=== PATIENT | female | born 1965 | race African-American/Black ===

== ENCOUNTER 2019-02-04 08:12 | Emergency (ER) | payer OTHER, SELFPAY ==
[2019-02-04 08:13] VITALS: BP 137/70; PULSE 67; RESP 18; TEMP 37.1; O2SAT 100; BMI 43.0
--- NOTE | 2019-02-04 08:19 | NURSING ---
NO OLD EKGS
--- NOTE | 2019-02-04 08:45 | EKG12_ITS ---
Test Reason : CP Blood Pressure : / mmHG Vent. Rate : 072 BPM Atrial Rate : 072 BPM P-R Int : 168 ms QRS Dur : 080 ms QT Int : 398 ms P-R-T Axes : 062 -02 027 degrees QTc Int : 435 ms Normal sinus rhythm Normal ECG Confirmed by TSEFANO PINEDO, DIGNA ([id number]), features editor EMELY DE ANDA ([id number]) on 02/07/2019 1:07:12 PM Referred By: KELLI Confirmed By:DIGNA AGARWAL MD
--- NOTE | 2019-02-04 09:04 | RAD_ITS ---
STUDY: X-RAY CHEST REASON FOR EXAM: Female, 53 years old. Chest pain. TECHNIQUE: PA and lateral views of the chest. COMPARISON: None. FINDINGS: The lungs are clear and expanded. There is no demonstrated pleural abnormality. Normal size heart. Normal mediastinum and marcie. Normal visualized pulmonary arteries. Normal visualized aortic arch and descending thoracic aorta. Normal visualized thoracic spine. Normal visualized ribs, clavicles, and shoulders. There is no demonstrated abnormality of the visualized soft tissue structures of the upper abdomen. RAD/Chest PA and Lateral IMPRESSION: No evidence of acute cardiopulmonary process. Electronically Signed: Reyes Bustamante DO at 9:18 EDT , Service support ,
[2019-02-04 09:25] LABS: Anion Gap 6 (5-15); BUN 8 mg/dL (7-18); BUN/Creat Ratio 9.7 RATIO (10-20); Calcium,Total 8.5 mg/dL (8.5-10.1); Chloride 107 mmol/L (98-107); Creatinine, Serum 0.83 mg/dL (0.55-1.02); EST Glomerular Filtration Rate 77 mL/min (>60); Est Glom Filt Rate - Afr Amer 93 mL/min (>60); Estimated Creatinine Clearance 75.07 ml/min; Glucose 88 mg/dL (74-106); Potassium 4.1 mmol/L (3.5-5.1); Sodium Level 141 mmol/L (136-145)
--- NOTE | 2019-02-04 10:15 | ED.VIS.GEN ---
History of Present Illness Chief Complaint: Chest Pain Detail of Chief Complaint: Intermittent bilateral arm discomfort, history of fibromyalgia Informant: Patient Onset: Days - 6 days Context: Sudden Onset Timing: Intermittent, Waxes and wanes, - - No association to exertion, change in position or food. Quality: Intermittent chest discomfort, which patient encouraged to fiber myalgia Location: Central chest Current Severity: Mild Maximum Severity: Moderate Worsened by: Palpation Relieved by: Nothing Associated Symptoms: Intermittent bilateral arm discomfort not associated with chest discomfort Narrative: Patient is a middle-aged woman with history of fibromyalgia who presents with central and predominantly left chest pain located above the left breast. Pain is worse with fibromyalgia. She attributes this to her fibromyalgia. There is no associated dyspnea, nausea or diaphoresis. The arm discomfort is not associated with the chest discomfort. She states because she is a middle-aged woman she wanted to assess for cardiac cause. She denies leg pain, swelling discoloration. She denies pleuritic chest pain, dyspnea on exertion or hemoptysis. Prior similar symptoms: No Recent Illness/Hospitalization: No - Past Medical History (1) Fibromyalgia affecting multiple sites Status: Acute Past Medical History - Allergies and Home Meds Allergies/Adverse Reactions: Allergies No Known Allergies Allergy (Verified 02/11/15 17:26) Primary Care Physician: Phil Finnegan DO [Primary Care Provider] - Prior records reviewed: Yes Surgical History: noncontributory Lives: With Family - She lives with her son Smoking Status: Never smoker Alcohol: None Drugs: None Review of Systems General: Denies: Chills, Fever, Malaise, Subjective, Sweats, Weight loss Eyes: Denies: Visual changes - bilaterally, Blurred Vision - bilaterally, Diplopia ENT: Denies: Rhinorrhea, Sore throat Cardiovascular: Reports: Chest pain. Denies: Palpitations, Heart racing Respiratory: Denies: Dyspnea, Cough, Dyspnea on exertion Gastrointestinal: Denies: Abdominal pain, Nausea, Vomiting, Diarrhea, Melena, Hematochezia Genitourinary: Denies: Dysuria, Hematuria, Frequency Musculoskeletal: Reports: Myalgias, Arthralgias. Denies: Back pain, Swelling, Extremity Pain Skin: Denies: Rash, Wounds Neurological: Denies: Headache, Weakness, Numbness Psych: Reports: Depression Allergy: Denies: Uticaria, Swelling of the mouth Physical Exam Vital Signs/Narrative: Vital Signs Temp Pulse Resp BP Pulse Ox 02/04/19 08:13 98.8 F 67 18 137/70 H 100 Inital Vital Signs reviewed: Yes - BMI 43.1 General: Well nourished, Well developed, Obese, No Acute Distress Head: Normocephalic, Atraumatic Eyes: Perrl, EOMI. Negative for: Pale conjunctiva, Scleral icterus ENT: Moist mucous membranes, No rhinorrhea Neck: Supple, Nontender Cardiovascular: Regular rate, Regular rhythm, No murmurs Respiratory: No distress, CTA bilaterally, Chest tenderness - To the left of the sternum Abdomen: Soft, Nontender, Nondistended, Normal bowel sounds Back: Nontender, Normal Inspection Extremities: Nontender, No edema, - - There is no asymmetry, swelling, discoloration, leg vein distention, palpable cords or tenderness along the distribution of the deep venous system. Skin: Normal color, No rash Neurological: Alert, Oriented x3, Cranial nerves II-XII grossly intact, Normal Strength, Normal Sensation Psychological: Normal affect, Normal Mood Diagnostic/Tx/Re-eval Chest X-Ray - ED: 2 View, Read by ED Physician, Normal, Heart, Mediastinum, Bony Structures, No Acute Disease Impressions Chest X-Ray 02/04/19 09:04 IMPRESSION: No evidence of acute cardiopulmonary process. Electronically Signed: Reyes Bustamante DO at 9:18 EDT , Service support , 02/04/19 09:04 Chest PA and Lateral [RAD] Stat Laboratory Results 02/04/19 08:40 Sodium 141 Potassium 4.1 Chloride 107 Carbon Dioxide 28.0 Anion Gap 6 BUN 8 Creatinine 0.83 Estim Creat Clear Calc 75.07 Est GFR (MDRD) Af Amer 93 Est GFR (MDRD) Non-Af 77 BUN/Creatinine Ratio 9.7 L Glucose 88 Calcium 8.5 Troponin I < 0.015 - Medical Decision Making Suspect patient's symptoms are secondary to her fibromyalgia. Because she is a middle-aged woman will obtain EKG, chest x-ray and troponin. Differential includes noncardiac chest pain, cardiac chest pain, GI/pulmonary etiology versus fibromyalgia. With days of discomfort and the chest pain only being fleeting when present suspect this is secondary to her fibromyalgia. We will discharged home with appropriate home-going instructions and reassurance. ED Disposition - Plan for ED Patient: Disposition: Home or Assisted Living Diagnosis: Fibromyalgia affecting multiple sites, Non-cardiac chest pain Instructions: ED Chest Pain NonCardiac, ED Fibrositis Referrals: Phil Finnegan DO [Primary Care Provider] - 1 Week if not improving
== END 2019-02-04 16:53 | disposition home or self-care (01) ==
PROVIDERS: Emergency Provider Emergency Medicine; Family Provider Student in an Organized Health Care Education/Training Program; PCP Student in an Organized Health Care Education/Training Program
DX: R07.89 Other chest pain (principal); M79.7 Fibromyalgia; E66.9 Obesity, unspecified; Z68.41 Body mass index [BMI] 40.0-44.9, adult
CPT/HCPCS: 71046; 80048; 84484; 93005; 99284

== ENCOUNTER 2020-08-14 12:15 | Emergency (ER) | payer OTHER, SELFPAY ==
[2020-08-14 12:17] VITALS: BP 153/91; PULSE 60; RESP 16; TEMP 36.6; O2SAT 98; BMI 47.9
--- NOTE | 2020-08-14 12:32 | CT_ITS ---
STUDY: CT BRAIN WITHOUT CONTRAST REASON FOR EXAM: Female, 55 years old. HEADACHE, PAIN X 2 WEEKS RADIATION DOSAGE (If Supplied By Facility): CTDIvol = ( 44.99 ) mGy, DLP = ( 745.49 ) mGycm TECHNIQUE: Transaxial CT imaging of the brain was performed without administration of intravenous contrast material. Individualized dose optimization techniques were used for this CT. COMPARISON: No relevant priors. FINDINGS: Normal soft tissue structures. Normal calvarium. Normal size ventricles and extra-axial spaces for the patient''s age. Normal white matter tracts of the cerebral hemispheres. Normal basal ganglia and thalami. Normal brainstem. Normal cerebellum. There is no intracranial hemorrhage. There are no findings of an acute ischemic infarction. Normal visualized paranasal sinuses. CT/Brain/Head without Contrast IMPRESSION: Normal unenhanced CT scan of the brain. Electronically Signed: Eugenio Hall MD at 13:35 EDT Tel , Service support ,
[2020-08-14] MEDS: Ketorolac 15 MG/ML Vial IV (13:03)
[2020-08-14] MEDS: DiphenhydrAMINE 50 MG/ML Syringe IV (13:03)
[2020-08-14] MEDS: Metoclopramide 10 MG/2 ML Vial IV (13:03)
--- NOTE | 2020-08-14 13:04 | ED.VISSUMM ---
- ER Visit Summary Date of Service: 08/14/20 Chief Complaint: Headache History of Present Illness: The patient is a [address] Finnegan in the [place] [facility]. She reports that she has a headache that began 2 weeks ago. She describes it as a sharp pain that is diffuse over her head. Is 10 out of 10 in severity. It is worsened by the smell of food or perfume. She has taken a triptan without relief. She denies fever. She is had nausea without vomiting. She does report she has blurred vision photophobia. Patient has any recent injury to her head. She denies any ear pain. She denies sore throat. Patient reports that she went to the [place] urgent care 2 weeks ago and was found to have shingles on her right buttock. She has been on Nano acyclovir for 1 week and a Medrol Dosepak. She reports that the rash is essentially resolved. She denies any pain in this area. Physical Examination: Vitals: Stable. Afebrile. General: Well-nourished and well-developed. Head: Normocephalic atraumatic. HEENT: TMs are within normal's bilaterally. Neck: Supple, no lymphadenopathy. No JVD. Nontender. Cardiovascular: Regular rate and rhythm. No murmurs. Respiratory: No respiratory distress. Clear to auscultation bilaterally. Abdominal: Soft, nontender, nondistended, normal bowel sounds. No guarding, rebound, or peritoneal signs. Back: Nontender. Extremities: Nontender, no edema. Skin: Normal color, no rash. No vesicular lesions. Neurologic: Alert and oriented ?3. Cranial nerves II through XII are intact. Normal strength and sensation. Psych: Normal affect. Test Results: CBC is normal. Chem-7 shows potassium 3.3 and creatinine 1.05. Clinical Impression(s) from Imaging Studies Brain CT 08/14/20 12:32 IMPRESSION: Normal unenhanced CT scan of the brain. Electronically Signed: Eugenio Hall MD at 13:35 EDT Tel , Service support , Emergency Department Course and Treatment: Patient had an IV placed. She is given a liter normal saline. She was given Benadryl, Toradol, and Reglan IV. She reports that her headache is resolved. Treatment Plan: Patient be discharged with Reglan. Instructed to follow-up her primary care physician 1 to 2 days if not improving. Return to the emergency department for any worsening symptoms. Disposition: To home in improved and stable condition. Impression: 1. Migraine headache. This note was generated with [employer] dictation software. It may contain incorrect words, spelling, and punctuation that were not noted in review of the chart prior to signing ED Disposition - Plan for ED Patient: Instructions: ED Headache Unspecified Prescriptions: Metoclopramide [Reglan] 10 mg PO 4X/DAY PRN #20 tablet PRN Reason: Headache [facility]errals[facility] [Primary Care Provider] - 1-2 Days if not improving
[2020-08-14] MEDS: 0.9% Normal Saline 1,000 ML 999 ML IV (13:06)
[2020-08-14 13:21] LABS: Absolute Lymphocyte Count 2.52 X10^3/uL (0.83-4.51); Absolute Neutrophil Count 5.3 X10^3/uL (2.0-7.7); Basophil# 0.03 X10^3/uL; Basophil% 0.3 % (0-1); Eosinophils% 1.2 % (0-5); Hematocrit 39.8 % (37-47); Hemoglobin 12.6 g/dL (12.0-15.0); Lymphocyte # 2.52 X10^3/ul (4.0); Mean Corp Hgb Conc 31.7 g/dL (32-36); Mean Corpuscular Hgb 26.8 pg (27.0-32.0); Mean Corpuscular Volume 84.5 fL (81-99); Mean Platelet Vol. 10.1 fl (6.2-12.0); Monocyte# 0.73 X10^3/uL; Monocyte% 8.4 % (0-10); NRBC Flagged by Analyzer 0 % (0-5); Neutrophil # 5.27 X10^3/uL (2.7-7.7); Neutrophil % 60.8 % (47-70); Platelet Count 351 K/mm3 (150-450); RBC Distribution Width CV 14.8 % (11.6-14.6); RBC Distribution Width SD 44.9 fl (35.1-43.9); Red Blood Count 4.71 M/mm3 (4.2-5.4); White Blood Count 8.7 K/mm3 (4.4-11.0)
[2020-08-14 13:28] LABS: Anion Gap 5 (5-15); BUN 9 mg/dL (7-18); BUN/Creat Ratio 8.6 RATIO (10-20); Calcium,Total 8.9 mg/dL (8.5-10.1); Chloride 106 mmol/L (98-107); Creatinine, Serum 1.05 mg/dL (0.55-1.02); EST Glomerular Filtration Rate 58 mL/min (>60); Est Glom Filt Rate - Afr Amer 71 mL/min (>60); Estimated Creatinine Clearance 58.01 ml/min; Glucose 94 mg/dL (74-106); Potassium 3.3 mmol/L (3.5-5.1); Sodium Level 141 mmol/L (136-145)
[2020-08-14 14:18] VITALS: BP 129/77; PULSE 54; RESP 16; O2SAT 98
== END 2020-08-14 14:20 | disposition home or self-care (01) ==
LOC: ED 12:42
PROVIDERS: Emergency Provider Emergency Medicine
DX: G43.909 Migraine, unspecified, not intractable, without status migrainosus (principal)
CPT/HCPCS: 70450; 80048; 85025; 96374; 96375; 99282; J7030; A4216

== ENCOUNTER 2021-02-27 11:32 | Outpatient (RCR) | payer OTHER, SELFPAY | END 2021-04-15 23:59 | LOC: IMMUN 11:32 | PROVIDERS: Referring Provider Family Medicine; Visit Provider Family Medicine | DX: Z23 Encounter for immunization (principal) | CPT/HCPCS: 0001A; 0002A; 91300 ==

== ENCOUNTER → 2021-04-17 15:48 | Outpatient (CLI) | payer OTHER, SELFPAY ==
--- NOTE | 2021-04-17 15:51 | BI_ITS ---
MAMMOGRAPHY - BILATERAL SCREENING REASON FOR EXAM: Female, 55 years old. Routine annual screening examination. PERTINENT HISTORY: Sister with breast cancer. Grandmother with breast cancer. Remote right excisional breast biopsy. TECHNIQUE: Digital bilateral breast kristopher (3D mammographic acquisition) in the CC and MLO projections. 2-D mediolateral oblique (MLO) and craniocaudad (CC) views of both breasts were obtained. CAD: Full Field Digital Mammography with Computer Added Detection was performed. COMPARISON: Comparison is made with prior outside examination dated 03/17/2019. FINDINGS: Breast Composition: There are scattered areas of fibroglandular density. There are no dominant masses or suspicious calcifications. Stable small benign-appearing bilateral axillary lymph nodes. No other significant abnormalities are identified. There has been no significant change since the prior study. BI/SCRN MAMM (CAD)W/KRISTOPHER BILAT IMPRESSION: Stable bilateral screening mammogram. Yearly follow-up mammogram recommended. (A) ASSESSMENT CATEGORY: BIRADS Category 2: Benign. A letter regarding these results will be sent to the patient by the facility within 30 days. Approximately 10% of breast cancers are not detected by mammography. A normal mammogram should not delay biopsy of a clinically suspicious abnormality. [id number] Electronically Signed: Hernando Enriquez MD at 8:19 EDT , Service support ,
== END ==
PROVIDERS: Referring Provider Nurse Practitioner Family; Visit Provider Nurse Practitioner Family
DX: Z12.31 Encounter for screening mammogram for malignant neoplasm of breast (principal)
CPT/HCPCS: 77063; 77067

== ENCOUNTER 2021-10-21 08:22 | Emergency (ER) | payer OTHER, SELFPAY ==
[2021-10-21 08:23] VITALS: BP 141/100; PULSE 74; RESP 16; TEMP 36.1; O2SAT 98; BMI 44.4
--- NOTE | 2021-10-21 08:36 | EDS_ITS ---
HPI History of Present Illness Chief Complaint: General Illness Informant: patient Onset/Context/Timing Onset: Month(s) Context: Gradual Onset Timing: Intermittent Current Severity: Mild Maximum Severity: Mild Narrative Narrative: 56-year-old female history of fibromyalgia, migraine headaches and menopausal. Patient states she she uses Celexa. Said the last several months she had intermittent dizzy spells. Nausea with decreased appetite. Diffuse aches and pains. Some right lower lateral back pain. And episodes of diaphoresis. Intermittent diarrhea. No fever. No dysuria. No abdominal pain. Prior similar symptoms: No Recent Illness/Hospitalization: No PFSH PFSH Medical History Arthritis Fibromyalgia Migraine Home Medications methylprednisolone See Taper PO DAILY 08/14/20 [History Last Taken Unknown] metoclopramide HCl 10 mg PO 4X/DAY PRN #20 tab 08/14/20 [Rx Last Taken Unknown] rizatriptan 5 mg PO X1 PRN 08/14/20 [History Last Taken Unknown] valacyclovir 1,000 mg PO TID 08/14/20 [History Last Taken Unknown] citalopram 30 mg PO QHS 10/21/21 [History Last Taken Unknown] Allergy/AdvReac Type Severity Reaction Status Date / Time citric acid AdvReac Rash Verified 10/21/21 08:25 Surgical History History of appendectomy Social History Smoking Status: Never smoker ROS ROS ED ROS Narrative Right lower back pain. Diarrhea. Review of Systems ROS Unobtainable: Denies due to encephalopathy Constitutional Constitutional ED: Denies fever(s) Eyes Eyes: Denies change in vision ENT ENT ED: Denies ear pain or sore throat Cardiovascular Cardiovascular: Denies chest pain Respiratory/Chest Respiratory/Chest: Denies cough, dyspnea or sputum Gastrointestinal Gastrointestinal: Reports diarrhea; Denies abdominal pain, nausea or vomiting Genitourinary Genitourinary ED: Denies dysuria or hematuria Musculoskeletal Musculoskeletal: Denies myalgias Integumentary Denies rash Neurologic Neurologic: Denies headache(s) Psychiatric Psychiatric: Denies depression Endocrine Endocrinology: Denies polyuria Allergic/Immunologic Allergic/Immunologic ED: Denies urticaria EXAM Physical Exam Narrative Exam Narrative: Middle-aged female no acute distress vital signs stable afebrile. Pulse ox 90% on room air no signs hypoxia. HEENT exam unremarkable. Moist with memories. Neck nontender no lymphadenopathy. Lungs clear to auscultation bilaterally. Heart regular rate and rhythm rate about 75 no murmur. Abdomen soft nontender normal bowel sounds no peritoneal signs. Morbidly obese. Moving all 4 extremities. Neurovascular intact. Normal motor strength. Nontender no edema. Back right lower paralumbar soft tissue tenderness. Spine nontender. Neurological exam awake and alert. Normal motor strength. Const Vital Signs: 10/21/21 08:23 10/21/21 08:31 Temperature 97.0 F L Temperature Source Temporal Pulse Rate 74 Respiratory Rate 16 Respiratory Effort Normal Non-Labored Blood Pressure 141/100 H Blood Pressure Mean 113 Pulse Ox 98 Oxygen Delivery Method Room Air Positive well nourished, well developed and obese; Negative for cachectic, contractures or unkempt General Appearance ED: well developed and NAD; Negative for unkempt, cachectic, contractures, cyanotic, diaphoretic or pallor Nutritional Appearance: obese; Negative for cachectic HEENT Reports moist mucous membranes Negative for trauma or tenderness Eyes PERRL and EOMs intact bilaterally Neck no lymphadenopathy, supple and no JVD General: Negative for tenderness Chest Wall inspection of chest normal and palpation of chest normal Resp normal respiratory effort and clear to auscultation bilaterally Effort and Inspection: Negative for pain with movement Auscultation: Negative for rales, rhonchi or wheezes Cardio regular rate, regular rhythm, S1 normal heart sound, S2 normal heart sound and no murmurs GI normal to inspection, nondistended, normoactive bowel sounds, non-tender, non- distended and no masses Inspection: Negative for abdominal distention Auscultation: normoactive bowel sounds Palpation: soft; Negative for tender, guarding or rebound tenderness present Back/Spine no CVA tenderness General Back: Negative for CVA tenderness Cervical Spine: Negative for cervical spine tenderness Thoracic Spine / Upper Back: paraspinal muscle tenderness; Negative for thoracic spinal tenderness Lumbar Spine / Lower Back: Negative for lumbar spinal tenderness Extremity normal to inspection General Extremety ED: Negative for edema or tenderness General Extremity: Negative for edema Neuro oriented x3 and CN's II-XII intact bilaterally Sensorium / Orientation: alert; Negative for orientation impaired, lethargic or stuporous Motor Exam: strength 5/5 throughout Psych mental status grossly normal Appearance: Negative for unkempt Mood & Affect: Negative for depressed or tearful Skin no rashes or lesions noted and no wounds General Skin Exam: Negative for jaundice or pallor MDM MDM MDM Narrative Medical decision making narrative: Middle-aged female with diffuse nonspecific symptoms and a normal exam. Screening labs and urinalysis are being obtained. Repeat exam at 9:20 AM patient is doing well. Exam is unchanged and unremarkable. She and I went over all of her test results. She will follow up as an outpatient with the [facility]. Lab Data Attestation: I reviewed the patient's lab results. Lab results narrative: CBC unremarkable white count 7. Hemoglobin 13.1. Platelets 315. Electrolytes show a gap of 5 normal BUN and creatinine. Normal liver enzymes. Urinalysis shows 0-5 reds. 0-5 whites. 2+ bacteria but there is 5-10 epithelial cells and no nitrites. UA is negative also. Labs: Laboratory Results - last 24 hr 10/21/21 10/21/21 10/21/21 08:40 08:40 08:50 WBC 7.7 RBC 4.91 Hgb 13.1 Hct 40.4 MCV 82.3 MCH 26.7 L MCHC 32.4 RDW Std Deviation 44.5 H RDW Coeff of Dwayne 14.6 Plt Count 315 MPV 9.9 Immature Gran % (Auto) 0.300 Neut % (Auto) 58.9 Lymph % (Auto) 31.9 [place] % (Auto) 6.9 Eos % (Auto) 1.7 Baso % (Auto) 0.3 Absolute Neuts (auto) 4.5 Absolute Lymphs (auto) 2.44 Nucleated RBC % 0 Sodium 140 Potassium 4.0 Chloride 111 H Carbon Dioxide 24.0 Anion Gap 5 BUN 10 Creatinine 0.93 Estim Creat Clear Calc 64.74 Est GFR (MDRD) Af Amer 81 Est GFR (MDRD) Non-Af 67 BUN/Creatinine Ratio 10.8 Glucose 97 Calcium 8.7 Total Bilirubin 0.40 AST 16 ALT 24 Alkaline Phosphatase 74 Total Protein 7.8 Albumin 3.2 Globulin 4.6 H Albumin/Globulin Ratio 0.7 L Urine Color Yellow Urine Clarity Clear Urine pH 8.0 Ur Specific [place] 1.010 Urine Protein 15 H Urine Glucose (UA) Normal Urine Ketones Negative Urine Occult Blood Negative Urine Nitrite Negative Urine Bilirubin Negative Urine Urobilinogen 1 H Ur Leukocyte Esterase 25 H Urine RBC 0-5 SEEN Urine WBC 0-5 SEEN Ur Squamous Epith Cells 5-10 SEEN Urine Bacteria 2+ Urine Mucus RARE Discharge Plan Triage Chief Complaint: General Illness ED Provider: Jonathan Martinez Dx/Rx/DC Orders Instructions: ED Flank Pain, Uncertain Cause Prescriptions: No Action valacyclovir 1,000 MG tablet 1,000 mg PO TID RF: 0 methylprednisolone 4 mg tablets,dose pack See Taper tab PO DAILY RF: 0 rizatriptan 5 MG tablet,disintegrating 5 mg PO X1 PRN (Reason: Headache) RF: 0 metoclopramide HCl 10 MG tablet 10 mg PO 4X/DAY PRN (Reason: Headache) Qty: 20 RF: 0 citalopram 20 mg tablet 30 mg PO QHS RF: 0 [facility] [facility]errals[place] [facility] [Primary Care Provider] - 1 Week if not improving Activity Restrictions/Additional Instructions: Your labs today including blood counts, electrolytes, liver enzymes, blood sugar, kidney function and urinalysis were all normal. Follow-up with the [facility]. Disposition Disposition: Home, Self Care
[2021-10-21 08:51] LABS: Absolute Lymphocyte Count 2.44 X10^3/uL (0.83-4.51); Absolute Neutrophil Count 4.5 X10^3/uL (2.0-7.7); Basophil# 0.02 X10^3/uL; Basophil% 0.3 % (0-1); Eosinophil# 0.13 X10^3/uL; Eosinophils% 1.7 % (0-5); Hematocrit 40.4 % (37-47); Hemoglobin 13.1 g/dL (12.0-15.0); Lymphocyte # 2.44 X10^3/ul (0.83-4.51); Lymphocyte % 31.9 % (19-41); Mean Corp Hgb Conc 32.4 g/dL (32-36); Mean Corpuscular Hgb 26.7 pg (27.0-32.0); Mean Corpuscular Volume 82.3 fL (81-99); Mean Platelet Vol. 9.9 fl (6.2-12.0); Monocyte# 0.53 X10^3/uL; Monocyte% 6.9 % (0-10); NRBC Flagged by Analyzer 0 % (0-5); Neutrophil # 4.52 X10^3/uL (2.7-7.7); Neutrophil % 58.9 % (47-70); Platelet Count 315 K/mm3 (150-450); RBC Distribution Width CV 14.6 % (11.6-14.6); RBC Distribution Width SD 44.5 fl (35.1-43.9); Red Blood Count 4.91 M/mm3 (4.2-5.4); White Blood Count 7.7 K/mm3 (4.4-11.0)
[2021-10-21 08:58] LABS: Color, Urine Yellow (Yellow); Glucose, Dipstick Normal (Normal); Ketone-Dipstick Negative (Negative); Leukocyte Esterase-Dipstick 25 /ul (Negative); Nitrite-Dipstick Negative (Negative); Occult Blood-Urine Negative /ul (Negative); Protein-Dipstick 15 mg/dl (Negative); Urine Bilirubin Dipstick Negative (Negative); Urine Clarity Clear (Clear); Urine Urobilinogen 1 mg/dl (Normal)
[2021-10-21 09:06] LABS: ALB/GLOB Ratio 0.7 RATIO (0.9-2.4); AST(SGOT) 16 U/L (15-37); Alanine Aminotransfer ALT/SGPT 24 U/L (13-56); Albumin, Serum 3.2 g/dL (3.2-5.0); Alkaline Phosphatase 74 U/L (45-117); Anion Gap 5 (5-15); BUN 10 mg/dL (7-18); BUN/Creat Ratio 10.8 RATIO (10-20); Calcium,Total 8.7 mg/dL (8.5-10.1); Chloride 111 mmol/L (98-107); Creatinine, Serum 0.93 mg/dL (0.55-1.02); EST Glomerular Filtration Rate 67 mL/min (>60); Est Glom Filt Rate - Afr Amer 81 mL/min (>60); Estimated Creatinine Clearance 64.74 ml/min; Globulin 4.6 g/dL (2.2-4.2); Glucose 97 mg/dL (74-106); Protein, Total 7.8 g/dL (6.4-8.2); Sodium Level 140 mmol/L (136-145)
[2021-10-21 09:10] LABS: Bacteria 2+ /hpf (None Seen); Mucous, Urine RARE /hpf (<or=2+); Red Blood Cells-Urine 0-5 SEEN /hpf (0-5); Squamous Epithelial Cells - UA 5-10 SEEN /hpf (5-10); White Blood Cells 0-5 SEEN /hpf (0-5)
== END 2021-10-21 09:26 | disposition home or self-care (01) ==
PROVIDERS: Emergency Provider Emergency Medicine
DX: R10.9 Unspecified abdominal pain (principal); M54.9 Dorsalgia, unspecified; R11.0 Nausea; R19.7 Diarrhea, unspecified; R42 Dizziness and giddiness; E66.9 Obesity, unspecified; Z79.899 Other long term (current) drug therapy
CPT/HCPCS: 80053; 81001; 85025; 99283; A4216

== ENCOUNTER 2022-03-29 07:13 | Emergency (ER) | payer OTHER, SELFPAY ==
[2022-03-29 07:16] VITALS: BP 135/89; PULSE 70; RESP 17; TEMP 36.3; O2SAT 98; BMI 45.3
[2022-03-29 07:40] VITALS: O2SAT 98
--- NOTE | 2022-03-29 07:40 | EX.ED.DYSGE1 ---
HPI History of Present Illness Chief Complaint: Cough Informant: patient Onset/Context/Timing Onset: Month(s) (1) Context: Gradual Onset Timing: Continuous Quality: Wheezing Location: Chest Worsened by: Hot and cold fluids Relieved by: Tessalon, room temperature fluids Narrative Narrative: Patient presents with cough and fatigue that has been constant for the past month. Patient states it came on gradually. Patient states she has been having some wheezing in her chest. Patient states she has been taking Tessalon which helps briefly. Patient states that room temperature fluids also seem to help with the cough. Patient states her cough seems to get worse if she drinks hot or cold fluids. Patient states she feels like she is wheezing in her chest.. Patient states that she has been seen at the [facility] twice for this. Patient states she was diagnosed with a viral illness. [facility] Medical History Arthritis Fibromyalgia Migraine Home Medications methylprednisolone See Taper PO DAILY 08/14/20 [History Last Taken Unknown] metoclopramide HCl 10 mg PO 4X/DAY PRN #20 tab 08/14/20 [Rx Last Taken Unknown] rizatriptan 5 mg PO X1 PRN 08/14/20 [History Last Taken Unknown] valacyclovir 1,000 mg PO TID 08/14/20 [History Last Taken Unknown] citalopram 30 mg PO QHS 10/21/21 [History Last Taken Unknown] Allergy/AdvReac Type Severity Reaction Status Date / Time sumatriptan [From Imitrex] Allergy Other Verified 03/29/22 07:15 citric acid AdvReac Rash Verified 10/21/21 08:25 metformin AdvReac Diarrhea Verified 03/29/22 07:15 Surgical History History of appendectomy Social History Smoking Status: Never smoker ROS ROS ED Constitutional Constitutional ED: Reports chills and subjective; Denies fever(s) Eyes Eyes: Denies blurry vision or change in vision ENT ENT ED: Reports ear pain left and sore throat; Denies rhinorrhea Cardiovascular Cardiovascular: Reports chest pain; Denies palpitations Respiratory/Chest Respiratory/Chest: Reports cough; Denies dyspnea Gastrointestinal Gastrointestinal: Reports nausea and vomiting Genitourinary Genitourinary ED: Denies dysuria or hematuria Musculoskeletal Musculoskeletal: Reports back pain; Denies neck pain Integumentary Denies abscess or rash Neurologic Neurologic: Reports headache(s); Denies weakness Allergic/Immunologic Allergic/Immunologic ED: Denies mouth swelling or urticaria EXAM Physical Exam Const Vital Signs: 03/29/22 07:16 03/29/22 07:40 03/29/22 08:22 Temperature 97.3 F L 97.3 F L Temperature Source Temporal Temporal Pulse Rate 70 70 Respiratory Rate 17 18 Respiratory Effort Normal Non-Labored Respiratory Depth Normal Respiratory Pattern Normal Blood Pressure 135/89 H 121/71 H Blood Pressure Mean 104 87 Pulse Ox 98 99 Oxygen Delivery Method Room Air Room Air Room Air 03/29/22 08:34 Temperature Temperature Source Pulse Rate 71 Respiratory Rate 18 Respiratory Effort Respiratory Depth Respiratory Pattern Normal Blood Pressure Blood Pressure Mean Pulse Ox Oxygen Delivery Method Positive well nourished, well developed and obese General Appearance ED: well developed and NAD Nutritional Appearance: obese HEENT Reports TM's clear and moist mucous membranes Tympanic Membrane ED: Yes TM's clear Eyes PERRL and EOMs intact bilaterally Neck supple and no JVD Resp normal respiratory effort Auscultation: diminished lung sounds bilateral Cardio regular rate, regular rhythm and no murmurs GI non-tender Palpation: soft Extremity normal to inspection General Extremety ED: Negative for edema or tenderness General Extremity: Negative for edema Neuro oriented x3, CN's II-XII intact bilaterally and no sensory deficits noted Sensorium / Orientation: alert Motor Exam: strength 5/5 throughout Psych mental status grossly normal Skin no rashes or lesions noted MDM MDM MDM Narrative Medical decision making narrative: Patient was given a DuoNeb aerosol here. CBC was within normal limits. Comprehensive metabolic profile was essentially within normal limits. Portable 1 view chest x-ray was obtained. On my interpretation, lung aguilar are clear. There is normal cardiac silhouette. Bony thorax is normal. There is no acute process noted. Radiologist also interpreted the x-ray and agrees. COVID-19 rapid antigen was obtained and was negative. Influenza A and influenza B swabs were obtained and were negative. Patient was feeling better on reevaluation. Patient was advised that this is most likely a viral upper respiratory infection. Patient was instructed to follow-up with her primary care physician in 5 to 7 days for reevaluation. Patient understood and was agreeable with the plan. All questions were answered. Lab Data Labs: Laboratory Results - last 24 hr 03/29/22 03/29/22 08:20 08:20 WBC 5.7 RBC 4.69 Hgb 12.4 Hct 39.0 MCV 83.2 MCH 26.4 L MCHC 31.8 L RDW Std Deviation 43.8 RDW Coeff of Dwayne 14.6 Plt Count 284 MPV 9.3 Immature Gran % (Auto) 0.300 Neut % (Auto) 52.3 Lymph % (Auto) 32.6 Kingsbury % (Auto) 13.6 H Eos % (Auto) 1.0 Baso % (Auto) 0.2 Absolute Neuts (auto) 3.0 Absolute Lymphs (auto) 1.87 Nucleated RBC % 0 Sodium 137 Potassium 3.1 L Chloride 103 Carbon Dioxide 28.0 Anion Gap 6 BUN 10 Creatinine 1.11 H Estim Creat Clear Calc 54.24 Est GFR (MDRD) Af Amer 66 Est GFR (MDRD) Non-Af 54 L BUN/Creatinine Ratio 9.0 L Glucose 88 Calcium 8.8 Total Bilirubin 0.30 AST 26 ALT 26 Alkaline Phosphatase 65 Total Protein 7.7 Albumin 3.4 Globulin 4.3 H Albumin/Globulin Ratio 0.8 L Radiography Diagnostic Testing: Clinical Impression(s) from Imaging Studies Chest X-Ray 03/29/22 07:46 IMPRESSION: Normal x-ray examination of the chest. Electronically Signed: Eugenio Hall MD at 8:39 EDT , Discharge Plan Triage Chief Complaint: Cough ED Provider: Ryan Parsons Dx/Rx/DC Orders Clinical Impression: Viral upper respiratory tract infection Instructions: ED URI, Viral, No Abx (Adult) Prescriptions: No Action valacyclovir 1,000 MG tablet 1,000 mg PO TID RF: 0 methylprednisolone 4 mg tablets,dose pack See Taper tab PO DAILY RF: 0 rizatriptan 5 MG tablet,disintegrating 5 mg PO X1 PRN (Reason: Headache) RF: 0 metoclopramide HCl 10 MG tablet 10 mg PO 4X/DAY PRN (Reason: Headache) Qty: 20 RF: 0 citalopram 20 mg tablet 30 mg PO QHS RF: 0 [facility] - 3-5 Days Disposition Disposition: Home, Self Care Discharge Date/Time: 03/29/22 10:25
--- NOTE | 2022-03-29 07:46 | RAD_ITS ---
STUDY: X-RAY CHEST REASON FOR EXAM: Female, 56 years old. Cough TECHNIQUE: Single AP portable view of the chest. COMPARISON: 02/04/2019 FINDINGS: The lungs are clear and expanded. There is no demonstrated pleural abnormality. Normal size heart. Normal mediastinum and marcie. Normal visualized pulmonary arteries. Normal visualized aortic arch and descending thoracic aorta. Normal visualized thoracic spine. Normal visualized ribs, clavicles, and shoulders. There is no demonstrated abnormality of the visualized soft tissue structures of the upper abdomen. RAD/Chest 1 View (Portable) IMPRESSION: Normal x-ray examination of the chest. Electronically Signed: Eugenio Hall MD at 8:39 EDT ,
[2022-03-29 08:22] VITALS: BP 121/71; PULSE 70; RESP 18; TEMP 36.3; O2SAT 99
[2022-03-29 08:26] LABS: Absolute Lymphocyte Count 1.87 X10^3/uL (0.83-4.51); Basophil# 0.01 X10^3/uL; Basophil% 0.2 % (0-1); Eosinophil# 0.06 X10^3/uL; Hemoglobin 12.4 g/dL (12.0-15.0); Lymphocyte # 1.87 X10^3/ul (0.83-4.51); Lymphocyte % 32.6 % (19-41); Mean Corp Hgb Conc 31.8 g/dL (32-36); Mean Corpuscular Hgb 26.4 pg (27.0-32.0); Mean Corpuscular Volume 83.2 fL (81-99); Mean Platelet Vol. 9.3 fl (6.2-12.0); Monocyte# 0.78 X10^3/uL; Monocyte% 13.6 % (0-10); NRBC Flagged by Analyzer 0 % (0-5); Neutrophil # 2.99 X10^3/uL (2.7-7.7); Neutrophil % 52.3 % (47-70); Platelet Count 284 K/mm3 (150-450); RBC Distribution Width CV 14.6 % (11.6-14.6); RBC Distribution Width SD 43.8 fl (35.1-43.9); Red Blood Count 4.69 M/mm3 (4.2-5.4); White Blood Count 5.7 K/mm3 (4.4-11.0)
[2022-03-29] MEDS: Ipratropium/Albuterol Sulfate 3 ML AMPUL.NEB INHALATION (08:31)
[2022-03-29 08:34] VITALS: PULSE 71; RESP 18
[2022-03-29 08:42] LABS: BUN 10 mg/dL (7-18); Creatinine, Serum 1.11 mg/dL (0.55-1.02); Estimated Creatinine Clearance 54.24 ml/min; Glucose 88 mg/dL (74-106)
[2022-03-29 08:43] LABS: ALB/GLOB Ratio 0.8 RATIO (0.9-2.4); AST(SGOT) 26 U/L (15-37); Alanine Aminotransfer ALT/SGPT 26 U/L (13-56); Albumin, Serum 3.4 g/dL (3.2-5.0); Alkaline Phosphatase 65 U/L (45-117); Anion Gap 6 (5-15); Calcium,Total 8.8 mg/dL (8.5-10.1); Chloride 103 mmol/L (98-107); EST Glomerular Filtration Rate 54 mL/min (>60); Est Glom Filt Rate - Afr Amer 66 mL/min (>60); Globulin 4.3 g/dL (2.2-4.2); Potassium 3.1 mmol/L (3.5-5.1); Protein, Total 7.7 g/dL (6.4-8.2); Sodium Level 137 mmol/L (136-145)
== END 2022-03-29 10:25 | disposition home or self-care (01) ==
PROVIDERS: Emergency Provider Emergency Medicine; Visit Provider Emergency Medicine
DX: J06.9 Acute upper respiratory infection, unspecified (principal); M79.7 Fibromyalgia; E66.9 Obesity, unspecified
CPT/HCPCS: 99282; 71045; 80053; 85025; 87428; 94640; 99283; A4216

== ENCOUNTER → 2022-04-20 | Outpatient (CLI) | payer OTHER, SELFPAY ==
--- NOTE | 2022-04-20 07:08 | BI_ITS ---
MAMMOGRAPHY - BILATERAL SCREENING REASON FOR EXAM: Female, 56 years old. Routine annual screening examination. PERTINENT HISTORY: Sister with breast cancer. Grandmother with breast cancer. Remote right excisional breast biopsy. TECHNIQUE: Digital bilateral breast kristopher (3D mammographic acquisition) in the CC and MLO projections. 2-D mediolateral oblique (MLO) and craniocaudad (CC) views of both breasts were obtained. CAD: Full Field Digital Mammography with Computer Added Detection was performed. COMPARISON: Comparison is made with prior study dated 04/17/2021. FINDINGS: Breast Composition: There are scattered areas of fibroglandular density. There are no dominant masses or suspicious calcifications. Stable small benign appearing bilateral axillary nodes. No other significant abnormalities are identified. There has been no significant change since the prior study. BI/SCRN MAMM (CAD)W/KRISTOPHER BILAT IMPRESSION: Stable bilateral screening mammogram. Yearly follow-up mammogram recommended. (A) ASSESSMENT CATEGORY: BIRADS Category 2: Benign. A letter regarding these results will be sent to the patient by the facility within 30 days. Approximately 10% of breast cancers are not detected by mammography. A normal mammogram should not delay biopsy of a clinically suspicious abnormality. [id number] Electronically Signed: Hernando Enriquez MD at 8:21 EDT ,
== END | disposition home or self-care (01) ==
LOC: OPBI 07:06
PROVIDERS: Visit Provider Nurse Practitioner Family
DX: Z12.31 Encounter for screening mammogram for malignant neoplasm of breast (principal)
CPT/HCPCS: 77063; 77067

== ENCOUNTER 2022-07-30 14:30 | Outpatient (RCR) | payer OTHER, SELFPAY ==
--- NOTE | 2022-05-15 07:46 | HP.PTEVAL_ITS ---
Patient's Visit Information SHEJUANA SASHA CORONA is a 56 year old F referred to Physical Therapy by BRANDO MORLEY with a diagnosis of LBP. Date of Evaluation: 05/15/22 Physical Therapist: Ryan Deal, CAILINT, OCS, CSCS - Visit Plan Frequency: 2x /Week Duration: 2 Months Plan: 2x/week for 6-8 weeks. we will start with aquatic based therapy to focus on: HS and quad/psoas stretching. LB ROM. core/postural UE and LE strength adn progress to I in pool. Pt wishes at some point to progress to and based gym program and will consider that after 4 weeks in pool. - Subjective I have pain. It is worsening over time. Has a torn meniscus r knee and upper and lower back pain and OA in whole body. Also has FM. Has chronic migraines. Most pain is posterior R hip and LB. Works in [employer] office up stairs and tries to walk and that makes pain worse. has to walk far from parking lot and knees, hip and back do not appreciate that. No falls. Some numbness and tingling in fingers and toes much of time. Sits too long or stand too long makes everything ache. Standing to do dishes takes toll on back and knees. Walks for exercise but it hurts. Putting hair in pony tail hurts shoulders. Sits at desk all day. sleep is not great, gets about 4-5 a night. Wants 8-10. Pain in LB ranges 0-10 and has been to ER. some times rarely does not hurt. Going out with sisters to [employer] is interrupted due to pain. - Pain LBP Pain Intensity (Out of 10): 0 Pain Intensity Range: 0, 10 - Objective Walks slow but steady with good balance to PT eval room. Transitions using UE I chair and bed. Steps require rail and are I, prefers descending using R only and tunring sideways mildly. Cervical aROM WFL and without pain. Lumbar AROM l imited in ext with some pain centrally, min limited SB with pain, flexion is tight and functional. Max tightness in HS at -45 90/90 test today, psoas and quads also tight causing back pain lying supine improved with bending knees. UE and LE AROM WFL outside of tightness. sensation UE and LE WNL to gross light touch. reflexes 1/3 patella and achilles and bi and tri. Strength hips 4-, knees 4 and ankles 4+, no pain. UE strength shoulder rotations 4- and flexion and abd 4- with some pain in shoulders.. Bi , tri, wrist testing is 5/5 and no pain. Tender to palpation throughout cervical area and into LB paraspinals. - slump. -SLR - Balance/Special Test Scores Functional Gait Assessment Score: 29 % Disability: 3.3400 Oswestry Neck Score: 21 - Goals Goal 1:: Sleep without waking 6 hours at night regularly Goal Time Frame: 6-8 Weeks Goal 2:: I approp gym or and aquatic ex to minimize symptoms Goal Time Frame: 6-8 Weeks Goal 3:: patient feel pain in whole body is 75% improved to 2/10 at worst Goal Time Frame: 6-8 Weeks Goal 4:: Up and down steps without increased pain at work Goal Time Frame: 6-8 Weeks Goal 5:: Sit to watch moving or at casino with sisters without increased pain Goal Time Frame: 6-8 Weeks - Rehabilitation Potential Physical Therapy Diagnosis: LBP, FM widespread chronic pain limiting funciton. Rehabilitation Potential: Fair - Anticipated Interventions Patient/Client Instruction: Educate patient on: Condition, Plan of Care For the Purpose of:: To decrease pain, To improve muscle performance and motor function, To increase tolerance to activity/condition/position, To improve gait and locomotor functions, To improve self management Therapeutic Exercise to Include: Strength training, Postural training, Flexibilty training, In an aquatic setting, Passive ROM, Active ROM For the Purpose of:: To decrease pain, To improve muscle performance and motor function, To increase tolerance to activity/condition/position, To improve ability of physical actions for home/community/work/leisure, To improve gait and locomotor functions, To improve self management Thank you for the opportunity to evaluate your patient. For Medicare and Medicare HMO plans, please review the plan of care and approve it. It will need to be FAXED BACK to us at [phone] for Medicare purposes. For Medicare only, by signing this I certify the plan of care. Please let me know if there are questions or concerns regarding this plan of care. Physician Signature: Date:
--- NOTE | 2022-07-16 15:23 | HP.PTREVAL ---
BRANDO MORLEY, It has been my pleasure to treat SHEJUANA SASHA CORONA over the last 14 visits for LBP. Please see the progress note below for an update on the physical therapy plan of care! Subjective: Got a great workout in the pool. I sleep much better. Very tired after sessions. 4/10 pain currently much better than it used to be. Pain still limits her but she is doing alot more. Event over weekend made her work through her pain. Will go get x rays . Will continue on her own in the pool. has elliptical, rower adn recumbent at home. Wants to learn gym exercises. Objective/Function: Good LB ROM without pain increase today, moving well. Steps reciprocal with one rail without assist or pain increase. Plan Plan: 2x/week for 2 weeks land to teach gym ex including LE postural and core strength including row, recumbent, elliptical and progress to I with list. Balance/Gait/Functional tests - Balance/Special Test Scores Functional Gait Assessment Score: 29 % Disability: 3.3400 Oswestry Neck Score: 18 Goals Goal 1:: Sleep without waking 6 hours at night regularly Goal Time Frame: 6-8 Weeks Goal Progress: Goal Met Goal 2:: I approp gym or and aquatic ex to minimize symptoms Goal Time Frame: 6-8 Weeks Goal Progress: Goal Met Goal 3:: patient feel pain in whole body is 75% improved to 2/10 at worst Goal Time Frame: 6-8 Weeks Goal Progress: 60% Goal 4:: Up and down steps without increased pain at work Goal Time Frame: 6-8 Weeks Goal Progress: Goal Met Goal 5:: Sit to watch moving or at casino with sisters without increased pain Goal Time Frame: 6-8 Weeks Goal Progress: Goal Met Goal 6:: I approp gym exercise to limit future pain. Goal Time Frame: 2 Weeks Anticipated Interventions Patient/Client Instruction: Educate patient on: Condition, Plan of Care For the Purpose of:: To decrease pain, To improve muscle performance and motor function, To increase tolerance to activity/condition/position, To improve gait and locomotor functions, To improve self management Therapeutic Exercise to Include: Strength training, Postural training, Flexibilty training, In an aquatic setting, Passive ROM, Active ROM For the Purpose of:: To decrease pain, To improve muscle performance and motor function, To increase tolerance to activity/condition/position, To improve ability of physical actions for home/community/work/leisure, To improve gait and locomotor functions, To improve self management Please do not hesitate to contact me at [phone] by phone or if you have questions or concerns regarding this new plan of care! Sincerely, Ryan Deal, DPT, OCS, CSCS
--- NOTE | 2022-08-03 15:31 | HP.PTDCSUM_ITS ---
It has been my pleasure to treat SHEJUANA SASHA CORONA referred by BRANDO MORLEY, with the diagnosis of LBP for a total of 18 visit(s). Discharge Date: 08/03/22 Please see the following information for a summary of their discharge status. Subjective: Working in the gym and stretching at home might have made her flare up. Shoulders are sore. Not getting in the pool regularly as she has not joined yet. Back pain is not bad but rest of body flared up with strength in gym. Sleeping on couch due to neck and shoulders. Hip is still hurting at times. LB is much better. R hip 4/10 daily. Worse with bending or sitting too long. To doctor but has not gotten x rays yet. LBP Pain Intensity (Out of 10): 0 RLE Pain Intensity (Out of 10): 5 % Improvement: 50 Objective/Function: ROM LB WFL and without increased pain today. Full UE and LE AROM without increased pain. just feel crummy overall in upper halpf more so than lower half. Goal 1:: Sleep without waking 6 hours at night regularly Goal Progress: Goal Met, setback Goal 2:: I approp gym or and aquatic ex to minimize symptoms Goal Progress: aquatic only tolerated Goal 3:: patient feel pain in whole body is 75% improved to 2/10 at worst Goal Progress: 50% Goal 4:: Up and down steps without increased pain at work Goal Progress: setback Goal 5:: Sit to watch moving or at casino with sisters without increased pain Goal Progress: Goal Met LB and hip Goal 6:: I approp gym exercise to limit future pain. Goal Progress: not tolerated. Plan: d/c, pt to cotninResponsa in pool x one month and then f/u with phyusician if wishes to return to gym exercises which she did not tolerate at this time. Discharge Comments: Pt to cotninue in water I 3x/weeka dn then [facility] if should return for [facility] based PT. If there are questions or concerns regarding this patient's physical therapy, please feel free to call me at [phone]. Thank you for the referral of this patient. Sincerely, Ryan Deal, DPT, OCS, CSCS Balance/Gait/Functional tests - Balance/Special Test Scores Functional Gait Assessment Score: 29 % Disability: 3.3400 Oswestry Low Back Score: 19 Oswestry Neck Score: 18
== END 2022-07-30 19:00 | disposition home or self-care (01) ==
LOC: PT 14:30
DX: M54.59 Other low back pain (principal)
CPT/HCPCS: 97110; 97113; 97162; 97530

== ENCOUNTER 2022-08-07 09:38 | Day surgery (SDC) | payer OTHER, SELFPAY ==
[2022-08-07] VITALS (7 sets, daily range): BP systolic 101–125; BP diastolic 61–76; PULSE 58–66; RESP 16; TEMP 36.1–36.9; O2SAT 96–100; BMI 47.5
--- NOTE | 2022-08-07 10:15 | HP.PCM_ITS ---
History and Physical Date of Admission: 08/07/22 Visit Reasons:?COLONOSCOPY Allergies sumatriptan [From Imitrex] Allergy (Verified 03/29/22 07:15) Othercitric acid Adverse Reaction (Verified 10/21/21 08:25) Rashmetformin Adverse Reaction (Verified 03/29/22 07:15) Diarrhea PFSH Medical History? Arthritis Fibromyalgia Migraine Surgical History? History of appendectomy Social History? Smoking Status:? Never smoker HPI HPI HPI: SHERENATO CORONA, is a 56 F who presents to the office today for surgical consultation regarding a colonoscopy.? The patient is referred by the [facility] and written compromise surgical consult and recommendations will return to them.? This will be the patient's for screening colonoscopy.? She has no personal history of colon polyps.? She has had previous appendectomy.? As of March 11, 2022 white blood cell count was 7.8 with a hemoglobin 12.6 Francis crit 39.3 and a platelet count of 276,000.? BUN is 10 and creatinine 1 with a glucose of 8 5. Exam Const General: cooperative, comfortable and no acute distress Nutritional Appearance: obese morbidly obese Orientation: alert and awake [facility] Head: normal to inspection Eyes General: appearance normal, both eyes and all related structures Neck Neck: normal visual inspection Resp Effort & Inspection: normal respiratory effort Auscultation: clear to auscultation bilaterally Cardio Rate: regular rate Rhythm: regular rhythm GI Palpation: soft and no hepatosplenomegaly Other: I am not able to detect any internal air organs secondary to body habitus Musc Cervical Spine: normal cervical lordosis Skin General: no rashes or lesions noted Neuro General: patient alert, patient awake and patient oriented x3 Assessment and Plan Assessment and Plan (1) Screening for intestinal cancer: ?Status:?Acute ?Plan: I recommended the patient a screening colonoscopy with possible biopsy or polypectomy as indicated.? She is aware of the technique, benefit, risk, alternatives.? She has had an opportunity to ask and have questions answered.? We will proceed as noted. Copy: [facility] Matt Quijano M.D., [place]kie. I have re-examined the patient. There are no clinical changes since date of exam. Matt Quijano M.D., TalhaS.
[2022-08-07] MEDS: Lactated Ringers 1,000 ML 15 ML IV (10:20)
--- NOTE | 2022-08-07 10:45 | COLBX_PTH ---
PATIENT: ELIZABETH CORONA LOC: EN U#:[id number] AGE/SX: 57/F ROOM: RE08/07/[address]: Dr. Matt Quijano MD : [id number] BED: DIS: 08/07/2022 SPEC #: [id number] RECD: 08/07/22 12:52 STATUS: MARIO REMukund #: [id number] ALEJANDRO: 08/07/22 10:[address]: Matt Quijano DEPT: SURGICAL PATHOLOGY RECD BY: Neva Beltran ENTERED: 08/07/22 13:24 SP TYPE: COLON BX OTHR DR: [facility] Tissues: Descending colon Procedures: Surgery Specimen Level IV HEADER OPERATION: Colonoscopy (MAC), biopsy PRE-OP DIAGNOSIS: Screening TISSUE SUBMITTED: Descending polyp biopsy MICROSCOPIC DIAGNOSIS Descending colon polyp, biopsy: Mucosal lipoma. AM:mine 08/10/2022 MICROSCOPIC DESCRIPTION Slides are reviewed. GROSS DESCRIPTION Received in fixative is one container labeled with the patient's name and designated descending polyp biopsy. The specimen consists of two irregular fragments of light arceo soft tissue that in aggregate measure 0.6 x 0.3 x 0.1 cm. The specimen is totally submitted in one cassette. / SJ:mine 08/07/2022 TC:5 CPT: 66661
--- NOTE | 2022-08-07 11:01 | OP.CCLET_ITS ---
08/07/2022 [facility] Re : Colonoscopy procedure for [facility] This procedure was performed on Sunday, August 07, 2022. My impressions and recommendations are as follows: Impressions : - Hemorrhoids found on perianal exam. - One 5 mm polyp in the distal descending colon, removed with a cold biopsy forceps. Resected and retrieved. - The examination was otherwise normal. Recommendations : - Discharge patient to home. - Resume previous diet. - Continue present medications. - Repeat colonoscopy in 5 years for surveillance based on pathology results. - Telephone my office for pathology results in 1 week. My findings are described in the full procedure note, which is enclosed. If I can be of further assistance, please feel free to contact me at Doctor phone number(s): Work: . Sincerely, Matt Quijano MD 08/07/2022 11:00:47 AM This report has been signed electronically.
--- NOTE | 2022-08-07 11:01 | OP.COLON_ITS ---
Patient Name: Gurpreet Colón Procedure Date: 08/07/2022 10:25 AM Date of : 1965 Age: 57 Procedure: Colonoscopy Indications: Screening for colorectal malignant neoplasm Providers: Matt Quijano MD Medicines: See the Anesthesia note for documentation of the administered medications Patient Profile: Last Colonoscopy: none. The patient's first colonoscopy is today. Complications: No immediate complications. Procedure: Pre-Anesthesia Assessment: - Prior to the procedure, a History and Physical was performed, and patient medications and allergies were reviewed. The patient's tolerance of previous anesthesia was also reviewed. The risks and benefits of the procedure and the sedation options and risks were discussed with the patient. All questions were answered, and informed consent was obtained. Prior Anticoagulants: The patient has taken no previous anticoagulant or antiplatelet agents. ASA Grade Assessment: III - A patient with severe systemic disease. After reviewing the risks and benefits, the patient was deemed in satisfactory condition to undergo the procedure. After I obtained informed consent, the scope was passed under direct vision. Throughout the procedure, the patient's blood pressure, pulse, and oxygen saturations were monitored continuously. The adult colonoscope was introduced through the anus and advanced to the cecum, identified by appendiceal orifice and ileocecal valve. The colonoscopy was somewhat difficult due to the patient's body habitus. The patient tolerated the procedure well. The quality of the bowel preparation was good. The ileocecal valve and the appendiceal orifice were photographed. Scope In: 10:39:29 AM Scope Withdrawal Time 0 hours 6 minutes 24 seconds Scope Out: 10:56:20 AM Total Procedure Duration Time 0 hours 16 minutes 51 seconds Findings: Hemorrhoids were found on perianal exam. A 5 mm polyp was found in the distal descending colon. The polyp was sessile. The polyp was removed with a cold biopsy forceps. Resection and retrieval were complete. The exam was otherwise without abnormality. Impression: - Hemorrhoids found on perianal exam. - One 5 mm polyp in the distal descending colon, removed with a cold biopsy forceps. Resected and retrieved. - The examination was otherwise normal. Recommendation: - Discharge patient to home. - Resume previous diet. - Continue present medications. - Repeat colonoscopy in 5 years for surveillance based on pathology results. - Telephone my office for pathology results in 1 week. Procedure Code(s): --- Professional --- 87330, Colonoscopy, flexible; with biopsy, single or multiple Diagnosis Code(s): --- Professional --- Z12.11, Encounter for screening for malignant neoplasm of colon K64.9, Unspecified hemorrhoids D12.4, Benign neoplasm of descending colon CPT copyright 2017 [employer]. All rights reserved. The codes documented in this report are preliminary and upon marine driller review may be revised to meet current compliance requirements. Matt Quijano MD 08/07/2022 11:00:47 AM This report has been signed electronically. Number of Addenda: 0 Note Initiated On: 08/07/2022 10:25 AM
== END 2022-08-07 12:46 | disposition home or self-care (01) ==
LOC: EN 09:41 → AC 09:43
PROVIDERS: Visit Provider Surgery
PROC: 0DJD8ZZ Inspection of Lower Intestinal Tract, Via Natural or Artificial Opening Endoscopic (ICD-10-PCS; CPT 45378; principal; 2022-08-07 10:40)
DX: Z12.11 Encounter for screening for malignant neoplasm of colon (principal); E66.01 Morbid (severe) obesity due to excess calories; Z68.42 Body mass index [BMI] 45.0-49.9, adult; D17.5 Benign lipomatous neoplasm of intra-abdominal organs; K64.9 Unspecified hemorrhoids; F41.9 Anxiety disorder, unspecified; F32.A Depression, unspecified; Z79.899 Other long term (current) drug therapy
CPT/HCPCS: 45380; 88305; J7120

== ENCOUNTER 2022-12-18 09:58 | Emergency (ER) | payer OTHER, SELFPAY ==
[2022-12-18 09:59] VITALS: BP 158/91; PULSE 68; RESP 20; TEMP 36.6; O2SAT 99; BMI 48.1
--- NOTE | 2022-12-18 10:10 | EKG12_ITS ---
Test Reason : CP Blood Pressure : / mmHG Vent. Rate : 069 BPM Atrial Rate : 069 BPM P-R Int : 168 ms QRS Dur : 076 ms QT Int : 404 ms P-R-T Axes : 042 002 024 degrees QTc Int : 432 ms Normal sinus rhythm Normal ECG Confirmed by STEFANO PINEDO, DIGNA ([id number]), slot editor EMELY DE ANDA ([id number]) on 12/21/2022 12:38:28 PM Referred By: ABIDA Confirmed By:DIGNA AGARWAL MD
--- NOTE | 2022-12-18 10:11 | EDS_ITS ---
HPI History of Present Illness Chief Complaint: General Illness Detail of Chief Complaint: Left-sided chest pain and left upper extremity pain Onset/Context/Timing Onset: Days (On set December 13) Context: Gradual Onset Timing: Continuous Quality: Ache Location: Left chest and left upper extremity Current Severity: Mild Maximum Severity: Moderate Worsened by: Nothing specific Relieved by: Mapping Associated Symptoms Associated Symptoms: Reports dyspnea on exertion past couple of weeks Narrative Narrative: Patient is a morbidly obese female with history of anxiety, fibromyalgia, IBS and migraine headaches who presents with anterior left chest pain described as a ache that radiates to the left shoulder and upper extremity. The chest discomfort is not associated with nausea, vomiting, dyspnea or diaphoresis. The pain has been constant since onset. There are no exacerbating, alleviating or precipitating factors. Patient denies black or maroon-colored stool. Patient denies sour taste in the back of her throat. Patient denies history of biliary disease or gallstones. She is uncertain if there is a family history of cholelithiasis. She presented because her father of coronary artery disease at the age of 67. She does not know when he had his first cardiac event. She denies history of VTE. She denies leg pain, swelling or discoloration. She has no risk factors for VTE. There is no history of trauma. She states she does have a rash noted on her back. The rash is not painful. Patient believes this may be due to anxiety or her fibromyalgia. Prior similar symptoms: No Recent Illness/Hospitalization: No [facility] Medical History (Updated 12/18/22 @ 10:[address] Jj Ruiz MD) Anxiety Arthritis Asthma Back pain Depression Fibromyalgia Fibromyalgia Gastric reflux History of pain when walking History of ulceration Injury of head and neck Migraine Non-smoker Post-menopausal Restless legs Shortness of breath on exertion Syncope Wears glasses Home Medications rizatriptan 5 mg disintegrating tablet 5 mg PO X1 PRN Headache 08/14/20 [History Last Taken Unknown] citalopram 20 mg tablet 40 mg PO QHS 10/21/21 [History Last Taken Unknown] buspirone 5 mg tablet 10 mg PO DAILY 08/05/22 [History Last Taken Unknown] dicyclomine 20 mg tablet 20 mg PO PRN PRN STOMACH PAIN 08/05/22 [History Last Taken Unknown] lorazepam 0.5 mg tablet 0.5 mg PO DAILY PRN Anxiety 08/05/22 [History Last Taken Unknown] propranolol 10 mg tablet 120 mg PO DAILY MIGRAINES 08/05/22 [History Last Taken 08/07/22] Allergy/AdvReac Type Severity Reaction Status Date / Time sumatriptan [From Imitrex] Allergy Other Verified 12/18/22 10:02 citric acid AdvReac Rash Verified 12/18/22 10:02 metformin AdvReac Diarrhea Verified 12/18/22 10:02 Surgical History History of appendectomy Hx of breast lump removal Social History household members: children Smoking Status: Never smoker substance use type: does not use ROS ROS ED Constitutional Constitutional ED: Denies chills, fever(s), subjective, sweats or weight loss Eyes Eyes: Denies blurry vision, change in vision or diplopia ENT ENT ED: Denies ear pain, rhinorrhea or sore throat Cardiovascular Cardiovascular: Reports chest pain; Denies orthopnea, palpitations, paroxysmal nocturnal dyspnea or racing heartbeat Respiratory/Chest Respiratory/Chest: Reports dyspnea on exertion; Denies cough, dyspnea, orthopnea, paroxysmal nocturnal dyspnea or sputum Gastrointestinal Gastrointestinal: Denies abdominal pain, melena, nausea or vomiting Genitourinary Genitourinary ED: Denies dysuria, hematuria or other Musculoskeletal Musculoskeletal: Denies arthralgias, back pain, myalgias or neck pain Integumentary Denies Abrasions or rash Neurologic Neurologic: Denies headache(s), paresthesias or weakness Hematologic/Lymphatic Hematologic/Lymphatic: Reports systems reviewed and no addt'l complaints, except as documented EXAM Physical Exam Const Vital Signs: 12/18/22 09:59 Temperature 97.9 F Temperature Source Temporal Pulse Rate 68 Respiratory Rate 20 H Blood Pressure 158/91 H Blood Pressure Mean 113 Pulse Ox 99 Oxygen Delivery Method Room Air Positive well nourished, well developed and obese General Appearance ED: well developed and NAD; Negative for cyanotic, diaphoretic or pallor Nutritional Appearance: obese HEENT Reports moist mucous membranes HEENT Narrative: Head is atraumatic normocephalic. Ears normal. Nares patent. Mucosa moist. Teeth normal. Eyes PERRL and EOMs intact bilaterally General Eye ED: Negative for pale conjunctiva or scleral icterus Neck no lymphadenopathy, supple and no JVD Neck Narrative: There is no carotid bruit noted on the right or left side. Chest Wall inspection of chest normal and palpation of chest normal Resp normal respiratory effort and clear to auscultation bilaterally Cardio regular rate, regular rhythm, S1 normal heart sound, S2 normal heart sound and no murmurs GI normal to inspection, nondistended, normoactive bowel sounds, non-tender, non- distended and no masses; Negative for hepatosplenomegaly Back/Spine no CVA tenderness Back/Spine Narrative: Inspection of the back is normal. There is no rash noted. There is no hyperesthesia. Cervical Spine: Negative for cervical spine tenderness Thoracic Spine / Upper Back: Negative for thoracic spinal tenderness Extremity normal to inspection Extremity Narrative: There is no asymmetry, swelling, discoloration, leg vein distention, palpable cords or tenderness along the distribution of the deep venous system. Neuro oriented x3, CN's II-XII intact bilaterally and no sensory deficits noted Sensorium / Orientation: alert Psych mental status grossly normal Skin no rashes or lesions noted, no wounds and skin turgor normal General Skin Exam: elasticity normal; Negative for jaundice or pallor MDM MDM MDM Narrative Medical decision making narrative: Differential diagnosis would include noncardiac chest pain i.e. fibromyalgia, musculoskeletal, GERD as well as cardiac. History is not consistent with PE. Suspect this most likely represents patient's fibromyalgia and or in combination with anxiety. Since there is family history coronary disease will obtain EKG and troponin. Chest x-ray was not obtained since patient is not hypoxic and there are no abnormal auscultatory findings on examination. Review of prior records indicates patient did have a colonoscopy for cancer screening. There was a 5 mm polyp noted distal colon. Biopsy results were negative for carcinoma. Patient was made aware of her results. Questions were answered. Lab Data Attestation: I reviewed the patient's lab results. Lab results narrative: With a troponin of 5 and 5 days of pain based on algorithm negative predictive value for cardiac is 100%. Therefore, we will discharge to home and attributed her chest pain to a combination of musculoskeletal/fibromyalgia and anxiety. Labs: Laboratory Results - last 24 hr 12/18/22 10:19 Troponin I High Sens 5 EKG Initial EKG: Attestation: I personally reviewed and interpreted this EKG as follows: Interpretation: Sinus Rhythm (Normal sinus rhythm rate of 69. EKG is normal. DC interval is 168 ms. QRS duration 76 ms. QT duration 404 ms. [place] is normal. This was compared old and there is no change.) Prior: Unchanged Discharge Plan Triage Chief Complaint: General Illness ED Provider: Jj Ruiz Dx/Rx/DC Orders Clinical Impression: Left-sided chest pain, Fibromyalgia affecting multiple sites, Hx of anxiety disorder Prescriptions: No Action rizatriptan 5 MG tablet,disintegrating 5 mg PO X1 MDD 6 PRN (Reason: Headache) citalopram 20 mg tablet 40 mg PO QHS buspirone 5 mg tablet 10 mg PO DAILY propranolol 10 mg tablet 120 mg PO DAILY lorazepam 0.5 mg Tablet 0.5 mg PO DAILY PRN (Reason: Anxiety) dicyclomine 20 mg tablet 20 mg PO PRN PRN (Reason: STOMACH PAIN) Label Comments: take 1 tablet by mouth four times a day for 5 days [facility] [Primary [facility] Provider] - As Needed Disposition Disposition: Home, Self Care Discharge Date/Time: 12/18/22 11:20
[2022-12-18 10:41] LABS: Troponin-I HS 5 pg/mL (3.0-54.0)
--- NOTE | 2022-12-18 11:20 | NURSING ---
[facility] # [id number]
== END 2022-12-18 11:20 | disposition home or self-care (01) ==
PROVIDERS: Emergency Provider Emergency Medicine; Visit Provider Emergency Medicine
DX: R07.9 Chest pain, unspecified (principal); E66.01 Morbid (severe) obesity due to excess calories; G43.909 Migraine, unspecified, not intractable, without status migrainosus; F41.9 Anxiety disorder, unspecified; F32.A Depression, unspecified; Z79.899 Other long term (current) drug therapy
CPT/HCPCS: 84484; 93005; 99284; A4216

== ENCOUNTER 2023-03-25 08:09 | Emergency (ER) | payer OTHER, SELFPAY ==
[2023-03-25 08:10] VITALS: BP 157/98; PULSE 65; RESP 18; TEMP 35.6; O2SAT 99; BMI 49.4
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
[2023-03-25 09:44] LABS: Absolute Lymphocyte Count 2.07 X10^3/uL (0.83-4.51); Absolute Neutrophil Count 4.2 X10^3/uL (2.0-7.7); Basophil# 0.03 X10^3/uL; Basophil% 0.4 % (0-1); Eosinophil# 0.19 X10^3/uL; Eosinophils% 2.7 % (0-5); Hematocrit 43.4 % (37-47); Lymphocyte # 2.07 X10^3/ul (0.83-4.51); Lymphocyte % 29.6 % (19-41); Mean Corp Hgb Conc 32.3 g/dL (32-36); Mean Corpuscular Hgb 27.1 pg (27.0-32.0); Mean Corpuscular Volume 83.9 fL (81-99); Mean Platelet Vol. 9.8 fl (6.2-12.0); Monocyte# 0.47 X10^3/uL; Monocyte% 6.7 % (0-10); NRBC Flagged by Analyzer 0 % (0-5); Neutrophil # 4.22 X10^3/uL (2.7-7.7); Neutrophil % 60.5 % (47-70); Platelet Count 293 K/mm3 (150-450); RBC Distribution Width CV 13.8 % (11.6-14.6); RBC Distribution Width SD 42.8 fl (35.1-43.9); Red Blood Count 5.17 M/mm3 (4.2-5.4)
[2023-03-25 09:53] LABS: Amphetamine Urine VISTA NEGATIVE (<1000 ng/mL); Barbiturate Urine VISTA NEGATIVE (< 200 ng/mL); Benzodiazepine Urine VISTA NEGATIVE (< 200 ng/mL); Cocaine Urine VISTA NEGATIVE (< 300 ng/mL); Ecstacy Urine VISTA POSITIVE (< 500 ng/mL); Methadone Urine VISTA NEGATIVE (< 300 ng/mL); PCP Urine VISTA NEGATIVE (< 25 ng/mL); THC Urine VISTA NEGATIVE (< 50 ng/mL); Vista UDS pH Range 6
[2023-03-25 09:57] LABS: Anion Gap 6 (5-15); BUN 12 mg/dL (7-18); BUN/Creat Ratio 10.6 RATIO (10-20); Calcium,Total 9.6 mg/dL (8.5-10.1); Chloride 107 mmol/L (98-107); Creatinine, Serum 1.13 mg/dL (0.55-1.02); EST Glomerular Filtration Rate 53 mL/min (>60); Est Glom Filt Rate - Afr Amer 64 mL/min (>60); Estimated Creatinine Clearance 52.66 ml/min; Glucose 116 mg/dL (74-106); Potassium 4.3 mmol/L (3.5-5.1); Sodium Level 137 mmol/L (136-145)
[2023-03-25 10:05] LABS: Alcohol, Blood (Medical)-Serum < 3.0 mg/dL
[2023-03-25 14:41] VITALS: BP 128/81; PULSE 59; RESP 16; O2SAT 98
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
--- NOTE | 2023-03-25 16:28 | CM.ED ---
Social Work SW faxed patient information to [facility] regarding psych placement referral. SW called twice and left two voicemails regarding referral. Syl Judd PAYMENT MANAGER, SKI PATROLLER
--- NOTE | 2023-03-25 16:54 | CM.ED ---
Social Work SW spoke with Arm[facility] at the [facility] regarding placement. [facility] requested a negative covid, a pink slip made out to them and confirmation that patient does not use a cpap. Covid faxed and patient does not use a cpap. [facility] accepting physician is Dr. Fisher with the psych ER and report is to be called to [phone] ext. [phone]. [facility] is arranging transport through the [facility]. If transport is not available he requests hospital to schedule transport. [facility] contact - [phone] ext. [phone], to notify of transport time. Syl Judd SUEDE CLEANER, AUTOMOBILE MECHANIC MOTOR
[2023-03-25 16:58] VITALS: RESP 16
[2023-03-25 18:31] VITALS: BP 124/74; PULSE 60; RESP 16; O2SAT 98
== END 2023-03-25 21:07 ==
PROVIDERS: Emergency Provider Emergency Medicine; Visit Provider Emergency Medicine
DX: F32.A Depression, unspecified (principal); F41.9 Anxiety disorder, unspecified
CPT/HCPCS: 36415; 80048; 80307; 82077; 85025; 87811; 99282

== ENCOUNTER 2023-05-21 08:20 | Emergency (ER) | payer OTHER, SELFPAY ==
[2023-05-21 08:22] VITALS: BP 160/84; PULSE 65; RESP 18; TEMP 36.4; O2SAT 98; BMI 49.7
--- NOTE | 2023-05-21 08:26 | EX.ED.DYSGE1 ---
HPI History of Present Illness Chief Complaint: Headache PFSH PFSH Medical History Anxiety Arthritis Asthma Back pain Depression Fibromyalgia Fibromyalgia Gastric reflux History of pain when walking History of ulceration Injury of head and neck Migraine Non-smoker Post-menopausal Restless legs Shortness of breath on exertion Syncope Wears glasses Home Medications rizatriptan 5 mg disintegrating tablet 5 mg PO X1 PRN Headache 08/14/20 [History Last Taken Unknown] citalopram 20 mg tablet 40 mg PO QHS 10/21/21 [History Last Taken Unknown] buspirone 5 mg tablet 10 mg PO DAILY 08/05/22 [History Last Taken Unknown] dicyclomine 20 mg tablet 20 mg PO PRN PRN STOMACH PAIN 08/05/22 [History Last Taken Unknown] lorazepam 0.5 mg tablet 0.5 mg PO DAILY PRN Anxiety 08/05/22 [History Last Taken Unknown] propranolol 10 mg tablet 120 mg PO DAILY MIGRAINES 08/05/22 [History Last Taken 08/07/22] metoclopramide HCl 5 mg tablet (Reglan) 5 mg PO Q8H PRN PRN nausea and vomiting 7 days #20 tabs 05/21/23 [Rx Last Taken Unknown] Allergy/AdvReac Type Severity Reaction Status Date / Time sumatriptan [From Imitrex] Allergy Other Verified 05/21/23 08:21 citric acid AdvReac Rash Verified 05/21/23 08:21 metformin AdvReac Diarrhea Verified 05/21/23 08:21 Surgical History History of appendectomy Hx of breast lump removal Social History household members: children Smoking Status: Never smoker substance use type: does not use EXAM Physical Exam Const Vital Signs: 05/21/23 08:22 Temperature 97.5 F L Temperature Source Temporal Pulse Rate 65 Respiratory Rate 18 Blood Pressure 160/84 H Blood Pressure Mean 109 Pulse Ox 98 Oxygen Delivery Method Room Air MDM MDM MDM Narrative Medical decision making narrative: HISTORY OF PRESENT ILLNESS: 57-year-old female here with migraine for the past 3 days. She also notes she has a knot in her left elbow. She further states this is similar to past migraine headaches. Notes she missed 2 doses of her triptan migraine medicine secondary to being out of them temporarily. She denies any head trauma. Denies any focal weakness loss of sensation or loss of vision. No fevers or neck stiffness noted. Patient denies sudden onset or thunderclap headache, denies maximal intensity within 1 minute, vomiting, neck pain or stiffness, changes in vision, fever, history malignancy, syncope, seizures. REVIEW OF SYSTEMS: Pertinent positives: Headache Pertinent negatives: Loss of consciousness, focal weakness, numbness, neck stiffness, fever, loss of sensation, loss of movement, slurred speech, visual loss PHYSICAL EXAM: Nursing triage notes reviewed, Vital signs reviewed Constitutional: please see mdm HENT: MMM Eyes: Pupils equal round and reactive to light, Extraocular muscles intact Neck: No stridor, no JVD, full neck ROM Lungs: Clear to auscultation, No wheezing or rales. No increased work of breathing, no conversational dyspnea, no accessory muscle use, no nasal flaring. No respiratory distress noted Heart: Regular rate and rhythm, No murmurs, No rubs and No gallops, 2+ distal pulses (radial, femoral, posterior tibial) in all extremities Abdomen: Soft, there is no tenderness, rigidity, rebound or guarding, no obvious peritoneal signs, no palpable pulsatile abdominal masses, no auscultated abdominal bruit : No CVAT Extremities: No edema Neuro: Alert and oriented x3, neuro exam at baseline, cranial nerves II through XII are intact. No pain with extraocular muscle movement. There is negative test of skew. Normal speech. 5 of 5 strength in upper and lower extremities in flexion extension. Intact sensation to light touch in upper and lower extremity dermatomes. No truncal or extremity ataxia. No dysdiadochokinesia. Normal gait. 2+ reflexes. No meningeal signs. Negative Babinski. NIH of 0 Skin: No rash or lesions noted MEDICAL DECISION MAKING: Chief Complaint: Headache External records reviewed: CT scan of the brain from 2019 shows no evidence of acute intracranial pathology Factors affecting care: History of migraine, fibromyalgia Social determinants of health: No report of drug use ALL IMAGES (IF OBTAINED) HAVE BEEN PERSONALLY REVIEWED AND INTERPRETED BY MYSELF. MDM Narrative: Patient was initially mildly hypertensive otherwise hemodynamically stable, afebrile and nontoxic-appearing. No focal neurologic deficits. I considered the following differential diagnosis: Subarachnoid hemorrhage, epidural hematoma, ICH, meningitis, carotid artery dissection, primary headache (cluster, tension, migraine) Low clinical suspicion for acute intracranial pathology such as mass, bleed. No signs of infectious etiology such as meningitis. There were no carotid bruits or focal neurodeficits to suggest carotid artery dissection. I suspect the patient is having a migraine headache. Will give fluids, Reglan and Toradol for symptomatic control and discharged with as needed Reglan and close neurology follow-up. The patient and/or family, caregivers express understanding. The patient and/or family, caregivers agrees with the plan. Total critical care time today provided was at least 0 minutes. This excludes separately billable procedures. Critical care time (if documented) is secondary to the patient having high probability of clinically significant/life threatening deterioration in the patient's condition which required my urgent intervention. Treatment and Re-Evaluation :: The patient looks great and is in no significant objective discomfort currently. The patient's headache is non-specific. Exam is unremarkable. The patient is in no distress and the patient?s neurological exam is non-focal, neck is supple and without meningismus. The headache is not consistent with meningitis or infection, nor is it consistent with intracranial bleed (SAH etc.), carotid dissection, nor mass by history and examination. Medication and outpatient follow-up was instructed. The patient was instructed to return as needed or if symptoms changed or worsened, fever developed or inability to tolerate fluids. The patient agreed with plan. Discharge Plan Triage Chief Complaint: Headache ED Provider: Michael Badillo Dx/Rx/DC Orders Clinical Impression: Headache Instructions: ED, Migraine (Classical) Prescriptions: New metoclopramide HCl [Reglan] 5 mg tablet 5 mg PO Q8H PRN PRN (Reason: nausea and vomiting) 7 Days Qty: 20 0RF No Action rizatriptan 5 MG tablet,disintegrating 5 mg PO X1 MDD 6 PRN (Reason: Headache) citalopram 20 mg tablet 40 mg PO QHS buspirone 5 mg tablet 10 mg PO DAILY propranolol 10 mg tablet 120 mg PO DAILY lorazepam 0.5 mg Tablet 0.5 mg PO DAILY PRN (Reason: Anxiety) dicyclomine 20 mg tablet 20 mg PO PRN PRN (Reason: STOMACH PAIN) Patient Comments: take 1 tablet by mouth four times a day for 5 days Primary Care Provider: [facility] Referrals: Efrain Foreman MD [Med Staff - Active Staff] - Activity Restrictions/Additional Instructions: Thank you for trusting us with your care today! Please take Tylenol (2 pills, 650 mg), ibuprofen (2 pills, 400 mg) every 6 hours as needed for pain and fever control. Please take Reglan for breakthrough headache Please return to the emergency department if your symptoms change or worsen. Specifically develop slurred speech, loss of vision, facial drooping, loss of movement or sensation in your arms or legs. Please follow with your neurologist for further outpatient evaluation and management. Disposition Disposition: Home, Self Care
[2023-05-21] MEDS: 0.9% Normal Saline 1,000 ML 999 ML IV (09:11)
[2023-05-21] MEDS: Ketorolac 15 MG/ML Vial IV (09:11)
[2023-05-21] MEDS: Metoclopramide 10 MG/2 ML Vial 5 MG IV (09:12)
[2023-05-21 10:53] VITALS: BP 109/74; RESP 16
== END 2023-05-21 10:55 | disposition home or self-care (01) ==
PROVIDERS: Emergency Provider Emergency Medicine; Visit Provider Emergency Medicine
DX: R51.9 Headache, unspecified (principal)
CPT/HCPCS: 96374; 96375; 99282; J7030

== ENCOUNTER 2023-06-14 06:48 | Emergency (ER) | payer OTHER, SELFPAY ==
[2023-06-14 06:49] VITALS: BP 131/68; PULSE 63; RESP 17; TEMP 36.1; O2SAT 97; BMI 50.5
--- NOTE | 2023-06-14 07:12 | RAD_ITS ---
STUDY: X-RAY CHEST REASON FOR EXAM: Female, 58 years old. Substernal chest pain TECHNIQUE: PA and lateral views of the chest. COMPARISON: 03/29/2022 FINDINGS: EKG leads overlie the chest The lungs are clear and expanded. There is no demonstrated pleural abnormality. Normal size heart. Normal mediastinum and marcie. Normal visualized pulmonary arteries. Normal visualized aortic arch and descending thoracic aorta. Normal visualized thoracic spine. Normal visualized ribs, clavicles, and shoulders. There is no demonstrated abnormality of the visualized soft tissue structures of the upper abdomen. RAD/Chest PA and Lateral IMPRESSION: Normal x-ray examination of the chest. Electronically Signed: Mauricio Anderson MD at 8:13 EDT ,
--- NOTE | 2023-06-14 07:15 | EKG12_ITS ---
Test Reason : Blood Pressure : / mmHG Vent. Rate : 062 BPM Atrial Rate : 062 BPM P-R Int : 186 ms QRS Dur : 084 ms QT Int : 440 ms P-R-T Axes : 008 007 010 degrees QTc Int : 446 ms Normal sinus rhythm Normal ECG Confirmed by STEFANO PINEDO, DIGNA ([id number]), general expeditor EMELY DE ANDA ([id number]) on 06/15/2023 9:36:10 AM Referred By: WINSOME Confirmed By:DIGNA AGARWAL MD
[2023-06-14 07:32] LABS: Absolute Lymphocyte Count 2.41 X10^3/uL (0.83-4.51); Basophil# 0.04 X10^3/uL; Basophil% 0.5 % (0-1); Eosinophil# 0.37 X10^3/uL; Eosinophils% 4.4 % (0-5); Hematocrit 39.9 % (37-47); Hemoglobin 12.4 g/dL (12.0-15.0); Lymphocyte # 2.41 X10^3/ul (0.83-4.51); Lymphocyte % 28.6 % (19-41); Mean Corp Hgb Conc 31.1 g/dL (32-36); Mean Corpuscular Hgb 26.2 pg (27.0-32.0); Mean Corpuscular Volume 84.4 fL (81-99); Monocyte# 0.56 X10^3/uL; Monocyte% 6.6 % (0-10); NRBC Flagged by Analyzer 0 % (0-5); Neutrophil # 5.02 X10^3/uL (2.7-7.7); Neutrophil % 59.4 % (47-70); Platelet Count 290 K/mm3 (150-450); RBC Distribution Width CV 14.6 % (11.6-14.6); RBC Distribution Width SD 45.4 fl (35.1-43.9); Red Blood Count 4.73 M/mm3 (4.2-5.4); White Blood Count 8.4 K/mm3 (4.4-11.0)
[2023-06-14 07:46] LABS: Anion Gap 4 (5-15); BUN 12 mg/dL (7-18); BUN/Creat Ratio 11.9 RATIO (10-20); Calcium,Total 8.5 mg/dL (8.5-10.1); Chloride 106 mmol/L (98-107); Creatinine, Serum 1.01 mg/dL (0.55-1.02); EST Glomerular Filtration Rate 60 mL/min (>60); Est Glom Filt Rate - Afr Amer 73 mL/min (>60); Estimated Creatinine Clearance 58.22 ml/min; Glucose 111 mg/dL (74-106); Potassium 3.6 mmol/L (3.5-5.1); Sodium Level 138 mmol/L (136-145); Troponin-I HS (w/2H Reflex) 7 pg/mL (3.0-54.0)
--- NOTE | 2023-06-14 07:53 | ED.VIS.CHEST ---
HPI History of Present Illness Chief Complaint: Chest Pain Informant: patient Narrative Narrative: Intermittent chest burning with regurgitation of past 4 days. Is been have symptoms for years. Reports diagnosed with IBS through the [place]. Also history of fibromyalgia osteoarthritis and migraine headaches. Colonoscopy in the past however no upper endoscopy. She states [facility] has placed her on a nausea medicine does not know the name. She is not on a PPI. States symptoms do worsen with foods and laying down. Denies any bloody stools. Denies abdominal pain. Denies any cardiac history. Prior Similar Symptoms: Yes CVD Risk Factors: Negative for Hypertension, Diabetes, Hypercholesterolemia, Family History 1' </=55 or Smoking PE Risk Factors: Negative for Recent Travel/Surgery, Recent Immobilization or Prior DVT or PE [facility] Medical History Anxiety Arthritis Asthma Back pain Depression Fibromyalgia Fibromyalgia Gastric reflux History of pain when walking History of ulceration Injury of head and neck Migraine Non-smoker Post-menopausal Restless legs Shortness of breath on exertion Syncope Wears glasses Home Medications rizatriptan 5 mg disintegrating tablet 5 mg PO X1 PRN Headache 08/14/20 [History Last Taken Unknown] citalopram 20 mg tablet 40 mg PO QHS 10/21/21 [History Last Taken Unknown] buspirone 5 mg tablet 10 mg PO DAILY 08/05/22 [History Last Taken Unknown] dicyclomine 20 mg tablet 20 mg PO PRN PRN STOMACH PAIN 08/05/22 [History Last Taken Unknown] propranolol 10 mg tablet 120 mg PO DAILY MIGRAINES 08/05/22 [History Last Taken 08/07/22] metoclopramide HCl 5 mg tablet (Reglan) 5 mg PO Q8H PRN PRN nausea and vomiting 7 days #20 tabs 05/21/23 [Rx Last Taken Unknown] pantoprazole 40 mg tablet,delayed release 40 mg PO DAILY #30 tabs 06/14/23 [Rx Last Taken Unknown] sucralfate 1 gram tablet (Carafate) 1 g PO Q6H #60 tabs 06/14/23 [Rx Last Taken Unknown] Allergy/AdvReac Type Severity Reaction Status Date / Time sumatriptan [From Imitrex] Allergy Other Verified 06/14/23 06:53 citric acid AdvReac Rash Verified 06/14/23 06:53 metformin AdvReac Diarrhea Verified 06/14/23 06:53 Surgical History History of appendectomy Hx of breast lump removal Social History household members: children Smoking Status: Never smoker substance use type: does not use ROS ROS ED Constitutional Constitutional ED: Denies chills, fever(s) or sweats Eyes Eyes: Denies change in vision ENT ENT ED: Denies dysphagia or sore throat Cardiovascular Cardiovascular: Reports chest pain; Denies leg edema, palpitations or racing heartbeat Respiratory/Chest Respiratory/Chest: Denies cough, dyspnea or dyspnea on exertion Gastrointestinal Gastrointestinal: Denies abdominal pain, diarrhea, nausea or vomiting Genitourinary Genitourinary ED: Denies dysuria, hematuria or urinary frequency Musculoskeletal Musculoskeletal: Denies back pain, extremity pain or neck pain Integumentary Denies rash or wounds Neurologic Neurologic: Denies headache(s), paresthesias or weakness EXAM Physical Exam Const Vital Signs: 06/14/23 06:49 06/14/23 06:51 06/14/23 07:16 Temperature 97 F L Temperature Source Temporal Pulse Rate 63 Respiratory Rate 17 Respiratory Effort Normal Blood Pressure 131/68 H Blood Pressure Mean 89 Pulse Ox 97 Oxygen Delivery Method Room Air Positive well nourished and well developed General Appearance ED: well developed and NAD HEENT Reports moist mucous membranes normocephalic and atraumatic Eyes PERRL, EOMs intact bilaterally and conjunctivae normal General Eye ED: Yes normal appearance of both eyes Neck no lymphadenopathy and supple General: Negative for tenderness Chest Wall Chest: Negative for tenderness Resp normal respiratory effort and normal air movement Effort and Inspection: symmetric chest movement; Negative for respiratory distress Cardio regular rate, regular rhythm and no murmurs Peripheral Pulses: pulses 2+ throughout GI normal to inspection, nondistended, normoactive bowel sounds and non-tender GI Narrative: Negative Dumont's or McBurney's tenderness Palpation: Negative for guarding or rebound tenderness present Back/Spine no CVA tenderness and no thoracic nor lumbar tenderness Extremity normal to inspection General Extremety ED: Negative for edema or tenderness General Extremity: Negative for edema Neuro oriented x3 and no sensory deficits noted Sensorium / Orientation: awake and alert Skin no rashes or lesions noted and no wounds MDM MDM MDM Narrative Medical decision making narrative: Interventions / MDM: Differential diagnosis: Gastritis Diagnosis considered but do not suspect: ACS however EKG with no ischemic changes and negative enzymes. Gastric ulcers however no clinical report. PE, denies any dyspnea. My EKG interpretation: Sinus rate of 62, no ST changes. isolated T wave version leads III. Nonspecific. Imaging independently reviewed and interpreted by myself: 2 view chest x-ray: No acute process no signs of hiatal hernia. External documents reviewed: N/A Test considered but not ordered:N/A ED course: Patient history reported indigestion worse with food. She has no abdominal pain. With chest symptoms cardiac work-up initiated. EKG troponin stable. Protonix and GI cocktail was given. Re-evaluation: stable, symptoms improved with medications. Cardiac work-up negative. Prescription for Carafate and pantoprazole written for symptom control to the pharmacy. [facility] as an outpatient as symptoms have been on and off for years. She will monitor for any rectal bleeding. All questions were answered. Disposition discussed with patient/family/significant other: Patient Case discussed with consulting clinician: N/A This note was generated with Zaya dictation software. It may contain incorrect words, spelling, and punctuation that were not noted in checking the note before signing. Lab Data Attestation: I reviewed the patient's lab results. Labs: Laboratory Results - last 24 hr 06/14/23 07:15 WBC 8.4 RBC 4.73 Hgb 12.4 Hct 39.9 MCV 84.4 MCH 26.2 L MCHC 31.1 L RDW Std Deviation 45.4 H RDW Coeff of Dwayne 14.6 Plt Count 290 MPV 10.0 Immature Gran % (Auto) 0.500 Neut % (Auto) 59.4 Lymph % (Auto) 28.6 Sutter % (Auto) 6.6 Eos % (Auto) 4.4 Baso % (Auto) 0.5 Absolute Neuts (auto) 5.0 Absolute Lymphs (auto) 2.41 Nucleated RBC % 0 Sodium 138 Potassium 3.6 Chloride 106 Carbon Dioxide 28.0 Anion Gap 4 L BUN 12 Creatinine 1.01 Estim Creat Clear Calc 58.22 Est GFR (MDRD) Af Amer 73 Est GFR (MDRD) Non-Af 60 BUN/Creatinine Ratio 11.9 Glucose 111 H Calcium 8.5 Troponin I High Sens 7 Radiography Diagnostic Testing: Clinical Impression(s) from Imaging Studies Chest X-Ray 06/14/23 07:12 IMPRESSION: Normal x-ray examination of the chest. Electronically Signed: Mauricio Anderson MD at 8:13 EDT Reading Location ID and State: [address] [place] [address] , Service support , Discharge Plan Triage Chief Complaint: Chest Pain ED Provider: Barrie Isabel Dx/Rx/DC Orders Clinical Impression: Gastritis, Atypical chest pain Instructions: ED Chest Pain, Noncardiac, ED Gastritis (Adult) Prescriptions: New sucralfate [Carafate] 1 gram tablet 1 g PO Q6H Qty: 60 0RF pantoprazole 40 mg tablet,delayed release (DR/EC) 40 mg PO DAILY Qty: 30 0RF No Action rizatriptan 5 MG tablet,disintegrating 5 mg PO X1 MDD 6 PRN (Reason: Headache) citalopram 20 mg tablet 40 mg PO QHS buspirone 5 mg tablet 10 mg PO DAILY propranolol 10 mg tablet 120 mg PO DAILY dicyclomine 20 mg tablet 20 mg PO PRN PRN (Reason: STOMACH PAIN) Patient Comments: take 1 tablet by mouth four times a day for 5 days metoclopramide HCl [Reglan] 5 mg tablet 5 mg PO Q8H PRN PRN (Reason: nausea and vomiting) 7 Days Qty: 20 0RF [facility] [Primary Care Provider] - 1-2 Weeks Activity Restrictions/Additional Instructions: Cardiac work-up negative. Symptoms improving with GI treatment. Take medication as prescribed. Follow-up with your [facility] doctors outpatient further evaluation for likely plan upper endoscopy as symptoms have been on and off for years. Monitor for any bloody stools. Disposition Disposition: Home, Self Care
[2023-06-14] MEDS: Mag Hydrox/Al Hydrox/Simeth 30 ML UDC PO (07:56)
[2023-06-14 08:30] VITALS: PULSE 59; RESP 18; O2SAT 97
[2023-06-14 09:21] LABS: Reflex Troponin-HS? (from REC) Y
== END 2023-06-14 08:33 | disposition home or self-care (01) ==
PROVIDERS: Emergency Provider Emergency Medicine; Visit Provider Emergency Medicine
DX: K29.70 Gastritis, unspecified, without bleeding (principal); R07.89 Other chest pain; K58.9 Irritable bowel syndrome, unspecified; M79.7 Fibromyalgia; M19.90 Unspecified osteoarthritis, unspecified site; Z79.899 Other long term (current) drug therapy
CPT/HCPCS: 71046; 80048; 84484; 85025; 93005; 96365; 99285; A4216

== ENCOUNTER 2023-06-17 01:59 | Emergency (ER) | payer OTHER, SELFPAY ==
[2023-06-17 02:00] VITALS: BP 124/92; PULSE 69; RESP 12; TEMP 35.8; O2SAT 99; BMI 50.3
--- NOTE | 2023-06-17 02:35 | RAD_ITS ---
STUDY: X-RAY CHEST REASON FOR EXAM: Female, 58 years old. Chest pain TECHNIQUE: PA and lateral views of the chest. COMPARISON: June 14, 2023 chest x-ray FINDINGS: The lungs are clear and expanded. There is no demonstrated pleural abnormality. Normal size heart. Normal mediastinum and marcie. Normal visualized pulmonary arteries. Normal visualized aortic arch and descending thoracic aorta. There are diffuse degenerative changes of the visualized thoracic spine. Normal visualized ribs, clavicles, and shoulders. There is no demonstrated abnormality of the visualized soft tissue structures of the upper abdomen. RAD/Chest PA and Lateral IMPRESSION: Degenerative changes, as described above. No demonstrated acute cardiopulmonary process. Electronically Signed: Adelina Redding MD at 2:57 EDT ,
--- NOTE | 2023-06-17 02:35 | EKG12_ITS ---
Test Reason : CP Blood Pressure : / mmHG Vent. Rate : 071 BPM Atrial Rate : 071 BPM P-R Int : 160 ms QRS Dur : 074 ms QT Int : 408 ms P-R-T Axes : 037 030 024 degrees QTc Int : 443 ms Normal sinus rhythm Normal ECG Confirmed by KEVIN PINEDO, OLIVIER ([id number]), supervising film or videotape editor CHARLY GRISSOM ([id number]) on 06/21/2023 8:17:08 AM Referred By: MARIANA Confirmed By:AMRITA BROWN MD
[2023-06-17 02:41] LABS: Absolute Lymphocyte Count 3.03 X10^3/uL (0.83-4.51); Absolute Neutrophil Count 6.2 X10^3/uL (2.0-7.7); Basophil# 0.04 X10^3/uL; Basophil% 0.4 % (0-1); Eosinophil# 0.35 X10^3/uL; Eosinophils% 3.3 % (0-5); Hematocrit 39.3 % (37-47); Hemoglobin 12.4 g/dL (12.0-15.0); Lymphocyte # 3.03 X10^3/ul (0.83-4.51); Lymphocyte % 28.6 % (19-41); Mean Corp Hgb Conc 31.6 g/dL (32-36); Mean Corpuscular Hgb 26.5 pg (27.0-32.0); Mean Platelet Vol. 10.1 fl (6.2-12.0); Monocyte# 0.92 X10^3/uL; Monocyte% 8.7 % (0-10); NRBC Flagged by Analyzer 0 % (0-5); Neutrophil # 6.22 X10^3/uL (2.7-7.7); Neutrophil % 58.6 % (47-70); Platelet Count 300 K/mm3 (150-450); RBC Distribution Width CV 14.8 % (11.6-14.6); RBC Distribution Width SD 45.3 fl (35.1-43.9); Red Blood Count 4.68 M/mm3 (4.2-5.4); White Blood Count 10.6 K/mm3 (4.4-11.0)
[2023-06-17 03:01] LABS: ALB/GLOB Ratio 0.7 RATIO (0.9-2.4); AST(SGOT) 15 U/L (15-37); Alanine Aminotransfer ALT/SGPT 20 U/L (13-56); Albumin, Serum 3.2 g/dL (3.2-5.0); Alkaline Phosphatase 88 U/L (45-117); Anion Gap 6 (5-15); BUN 11 mg/dL (7-18); BUN/Creat Ratio 8.7 RATIO (10-20); Calcium,Total 9.3 mg/dL (8.5-10.1); Chloride 103 mmol/L (98-107); Creatinine, Serum 1.26 mg/dL (0.55-1.02); EST Glomerular Filtration Rate 47 mL/min (>60); Est Glom Filt Rate - Afr Amer 57 mL/min (>60); Estimated Creatinine Clearance 46.67 ml/min; Globulin 4.5 g/dL (2.2-4.2); Glucose 110 mg/dL (74-106); Lipase 41 U/L (13-75); Potassium 4.3 mmol/L (3.5-5.1); Protein, Total 7.7 g/dL (6.4-8.2); Sodium Level 137 mmol/L (136-145); Troponin-I HS 4 pg/mL (3.0-54.0)
--- NOTE | 2023-06-17 03:04 | EX.ED.DYSGE1 ---
HPI History of Present Illness Chief Complaint: Chest Pain Informant: patient Narrative Narrative: Patient is a 58-year-old female with history of GERD, fibromyalgia, depression and anxiety presenting with continued chest pain that she attributes to her acid reflux. She states she has been having ongoing issues with this pain. To the center of her chest and seems to radiate up into her neck. She states she was seen in our ER couple days ago and after the GI cocktail wore off her pain returned. She states it is an aching and stabbing pain. She states this in her chest, upper back, left ear/jaw and in the back of her head. States she cannot lay down because the pain becomes too severe. Does feel that this pain has been worsening since her last visit on 06/14 (3 days ago). Has been taking her medications prescribed which include Carafate as well as pantoprazole. Tried [id number] version of GI cocktail today with simethicone and Maalox but does not think it helped significantly. Also notes over the past few days she has been having panic attacks. She notes a lot of stress at work. Has surgical history of prior appendectomy. Still has her gallbladder. States she ate a cob salad today with no real change in her symptoms. States that all she has had. Notes her pain is worse when she takes a deep breath or bends a certain way or lays down. Follows with the [facility] for [facility]. Has not contacted the [facility] about an EGD since her last visit. Has had a recent colonoscopy on 08/07/2022 which showed hemorrhoids, a 5 mm polyp of the distal descending colon which was removed and was otherwise normal. Patient denies any swelling of her legs. Denies any history of DVT or PE. [facility] Medical History Anxiety Arthritis Asthma Back pain Depression Fibromyalgia Fibromyalgia Gastric reflux History of pain when walking History of ulceration Injury of head and neck Migraine Non-smoker Post-menopausal Restless legs Shortness of breath on exertion Syncope Wears glasses Home Medications rizatriptan 5 mg disintegrating tablet 5 mg PO X1 PRN Headache 08/14/20 [History Last Taken Unknown] citalopram 20 mg tablet 40 mg PO QHS 10/21/21 [History Last Taken Unknown] buspirone 5 mg tablet 10 mg PO DAILY 08/05/22 [History Last Taken Unknown] propranolol 10 mg tablet 120 mg PO DAILY MIGRAINES 08/05/22 [History Last Taken 08/07/22] pantoprazole 40 mg tablet,delayed release 40 mg PO DAILY #30 tabs 06/14/23 [Rx Last Taken Unknown] sucralfate 1 gram tablet (Carafate) 1 g PO Q6H #60 tabs 06/14/23 [Rx Last Taken Unknown] pantoprazole 40 mg tablet,delayed release 40 mg PO QHS #7 tabs 06/17/23 [Rx Last Taken Unknown] Allergy/AdvReac Type Severity Reaction Status Date / Time sumatriptan [From Imitrex] Allergy Other Verified 06/17/23 02:05 citric acid AdvReac Rash Verified 06/17/23 02:05 metformin AdvReac Diarrhea Verified 06/17/23 02:05 Surgical History History of appendectomy Hx of breast lump removal Social History household members: children Smoking Status: Never smoker substance use type: does not use ROS ROS ED Constitutional Constitutional ED: Denies chills or fever(s) Eyes Eyes: Denies change in vision ENT ENT ED: Reports ear pain left Cardiovascular Cardiovascular: Reports chest pain Respiratory/Chest Respiratory/Chest: Reports dyspnea; Denies cough Gastrointestinal Gastrointestinal: Denies abdominal pain, constipation, diarrhea, nausea or vomiting Musculoskeletal Musculoskeletal: Reports back pain, myalgias and neck pain; Denies arthralgias Integumentary Denies rash Neurologic Neurologic: Denies headache(s) or weakness Psychiatric Psychiatric: Reports anxiety EXAM Physical Exam Const Vital Signs: 06/17/23 02:00 06/17/23 02:03 06/17/23 05:07 Temperature 96.4 F L Temperature Source Temporal Pulse Rate 69 74 Respiratory Rate 12 22 H Respiratory Effort Normal Blood Pressure 124/92 H Blood Pressure Mean 102 Pulse Ox 99 98 Oxygen Delivery Method Room Air Positive well nourished, well developed and obese General Appearance ED: well developed and NAD Nutritional Appearance: obese HEENT Reports moist mucous membranes Eyes PERRL and EOMs intact bilaterally Neck supple and no JVD Chest Wall inspection of chest normal and palpation of chest normal Chest Narrative: No chest wall crepitus Resp normal respiratory effort and clear to auscultation bilaterally Cardio regular rate, regular rhythm and no murmurs GI normal to inspection, nondistended, normoactive bowel sounds GI Narrative: Mild tenderness to palpation in the right upper quadrant Back/Spine no CVA tenderness Extremity normal to inspection Extremity Narrative: 2+ radial and DP pulses General Extremety ED: Negative for edema General Extremity: Negative for edema Neuro oriented x3 Sensorium / Orientation: alert Motor Exam: Negative for general weakness Psych mental status grossly normal Skin no rashes or lesions noted and no wounds MDM MDM MDM Narrative Medical decision making narrative: Patient is evaluated for continued/worsening reflux symptoms. She was seen for the same symptoms but less severe 3 days ago. Vital signs are normal. He is not hypoxic. Low suspicion for acute cardiopulmonary pathology despite her chest pain. EKG is normal sinus rhythm and a high sensitive troponin is 4. This is stable compared to her workup a couple days ago. Hemoglobin is stable low suspicion for active bleeding. She has a normal BUN to creatinine ratio. Her creatinine is now 1.26 which is minimally elevated from a couple days ago but still quite near her baseline of 0.9-1.1 she is given IV fluids however. She is given a GI cocktail and now resting comfortably. Patient admits that she is only had 1 dose of her Carafate since discharge since she just got it filled. Liver enzymes and lipase are also normal so lower suspicion for pancreatitis biliary obstruction/cholecystitis causing her symptoms. I do not think she requires imaging. 2 view chest x-ray obtained which does not show any acute process specifically does not show signs of pneumomediastinum. Given her HPI of the low suspicion for this 91 he is required to CT for further evaluation. I do not suspect perforated ulcer. Patient is encouraged to call the [facility] for GI follow-up as I do think she would benefit from endoscopy. She is given referral to our surgeon (she has previously seen Dr. Quijano). Given return precautions. Will increase her pantoprazole for the next week to try to get this flare calm down. Lab Data Attestation: I reviewed the patient's lab results. Labs: Laboratory Results - last 24 hr 06/17/23 02:10 WBC 10.6 RBC 4.68 Hgb 12.4 Hct 39.3 MCV 84.0 MCH 26.5 L MCHC 31.6 L RDW Std Deviation 45.3 H RDW Coeff of Dwayne 14.8 H Plt Count 300 MPV 10.1 Immature Gran % (Auto) 0.400 Neut % (Auto) 58.6 Lymph % (Auto) 28.6 Mora % (Auto) 8.7 Eos % (Auto) 3.3 Baso % (Auto) 0.4 Absolute Neuts (auto) 6.2 Absolute Lymphs (auto) 3.03 Nucleated RBC % 0 Sodium 137 Potassium 4.3 Chloride 103 Carbon Dioxide 28.0 Anion Gap 6 BUN 11 Creatinine 1.26 H Estim Creat Clear Calc 46.67 Est GFR (MDRD) Af Amer 57 L Est GFR (MDRD) Non-Af 47 L BUN/Creatinine Ratio 8.7 L Glucose 110 H Calcium 9.3 Total Bilirubin 0.30 AST 15 ALT 20 Alkaline Phosphatase 88 Troponin I High Sens 4 Total Protein 7.7 Albumin 3.2 Globulin 4.5 H Albumin/Globulin Ratio 0.7 L Lipase 41 Radiography Chest X-Ray - ED: 2 View, Read by ED Physician, Read by Radiologist and No Acute Disease Diagnostic Testing: Clinical Impression(s) from Imaging Studies Chest X-Ray 06/17/23 02:35 IMPRESSION: Degenerative changes, as described above. No demonstrated acute cardiopulmonary process. Electronically Signed: Adelina Redding MD at 2:57 EDT Reading Location ID and State: [facility] / [place] Tel , Service support , Rhythm Strip Rhythm Strip: Sinus Rhythm Rate: 71 Ectopy: None EKG Initial EKG: Attestation: I personally reviewed and interpreted this EKG as follows: Interpretation: Sinus Rhythm Comments: Normal sinus rhythm at a rate of 71 bpm Normal axis Normal intervals Normal ST segment Discharge Plan Triage Chief Complaint: Chest Pain ED Provider: Arabella Dixon Dx/Rx/DC Orders Clinical Impression: Chest pain due to GERD, Gastritis Instructions: ED GERD (Adult) Prescriptions: New pantoprazole 40 mg tablet,delayed release (DR/EC) 40 mg PO QHS Qty: 7 0RF No Action rizatriptan 5 MG tablet,disintegrating 5 mg PO X1 MDD 6 PRN (Reason: Headache) citalopram 20 mg tablet 40 mg PO QHS buspirone 5 mg tablet 10 mg PO DAILY propranolol 10 mg tablet 120 mg PO DAILY sucralfate [Carafate] 1 gram tablet 1 g PO Q6H Qty: 60 0RF pantoprazole 40 mg tablet,delayed release (DR/EC) 40 mg PO DAILY Qty: 30 0RF [facility] Referrals: Vikram Ferrari MD [Med Staff - Active Staff] - [facility] [Primary Care Provider] - Activity Restrictions/Additional Instructions: Due to the severity of your symptoms, for the next week take the pantoprazole twice a day and then go back to once a day. You been given an additional 7 pills for this. In addition continue taking the sucralfate every 6 hours as prescribed. Please follow-up with the [facility] for evaluation for endoscopy. If you cannot get in, you have been given referral to our surgeon who does endoscopies. Disposition Disposition: Home, Self Care Discharge Date/Time: 06/17/23 05:08
[2023-06-17] MEDS: Mag Hydrox/Al Hydrox/Simeth 30 ML UDC PO (03:12)
[2023-06-17] MEDS: 0.9% Normal Saline 1,000 ML 999 ML IV (03:14)
[2023-06-17 05:07] VITALS: PULSE 74; RESP 22; O2SAT 98
== END 2023-06-17 05:08 | disposition home or self-care (01) ==
PROVIDERS: Emergency Provider Emergency Medicine; Visit Provider Emergency Medicine
DX: R07.9 Chest pain, unspecified (principal); K21.9 Gastro-esophageal reflux disease without esophagitis; K29.70 Gastritis, unspecified, without bleeding; E66.9 Obesity, unspecified; F41.9 Anxiety disorder, unspecified; F32.A Depression, unspecified; Z79.899 Other long term (current) drug therapy
CPT/HCPCS: 71046; 80053; 83690; 84484; 85025; 93005; 96360; 96361; 99284; J7030; A4216

== ENCOUNTER 2024-04-03 10:06 | Emergency (ER) | payer OTHER, SELFPAY ==
[2024-04-03 10:06] VITALS: BP 137/99; PULSE 85; RESP 18; TEMP 35.5; O2SAT 100; BMI 47.9
--- NOTE | 2024-04-03 10:15 | RAD_ITS ---
HISTORY: injury. TECHNIQUE: XR Hand Min 3 Views. COMPARISON: None. FINDINGS: BONES : No acute fracture identified. Mineralization unremarkable. JOINTS: No dislocation. Joint spaces maintained. SOFT TISSUES: Mild soft tissue swelling of the third finger. RAD/Hand Min 3 Views IMPRESSION: No acute fracture or dislocation identified in the right hand. Electronically Signed: Brandee Mojica MD at 10:37 EDT ,
--- NOTE | 2024-04-03 10:15 | RAD_ITS ---
HISTORY: injury. TECHNIQUE: XR Foot Min 3 Views. COMPARISON: None. FINDINGS: BONES : Small fragment at the base of the first proximal phalanx. Degenerative sclerosis and osteophytes of the first metatarsal phalangeal joint. JOINTS: No dislocation. Mild degenerative change of the first metatarsophalangeal joint. SOFT TISSUES: Soft tissue swelling of the ankle and foot. RAD/Foot min 3 Views IMPRESSION: Age-indeterminate nondisplaced fracture at the base of the proximal phalanx in the left first toe. Electronically Signed: Brandee Mojica MD at 10:36 EDT ,
--- NOTE | 2024-04-03 10:15 | EX.ED.DYSGE1 ---
HPI History of Present Illness Chief Complaint: Lower Extremity Injury Informant: patient Onset/Context/Timing Onset: Today Narrative Narrative: Patient presents after a fall at home. She was trying to feed her cat when her feet got tangled and she fell forward striking her left flank against a barstool and falling. She complains of pain to her left great toe and her right hand. No loss of consciousness. [facility] Medical History (Updated 04/03/24 @ 11:[address] Deb Beebe MD) Fibromyalgia Wears glasses Post-menopausal Depression Anxiety Restless legs Back pain Injury of head and neck Syncope History of ulceration Gastric reflux Non-smoker Asthma Shortness of breath on exertion History of pain when walking Arthritis Migraine Home Medications ?Medication ?Instructions ?Recorded ?Last Taken ?Type rizatriptan 5 mg disintegrating 5 mg PO X1 PRN Headache 08/14/20 Unknown History tablet citalopram 20 mg tablet 40 mg PO QHS 10/21/21 Unknown History buspirone 5 mg tablet 10 mg PO DAILY 08/05/22 Unknown History propranolol 10 mg tablet 120 mg PO DAILY MIGRAINES 08/05/22 08/07/22 History bupropion HCl 150 mg 24 hr tablet, 150 mg PO DAILY 04/03/24 04/03/24 History extended release omeprazole 20 mg capsule,delayed 40 mg PO BID 04/03/24 04/03/24 History release Allergy/AdvReac Type Severity Reaction Status Date / Time sumatriptan (From Imitrex) Allergy Other Verified 04/03/24 10:06 citric acid AdvReac Rash Verified 04/03/24 10:06 metformin AdvReac Diarrhea Verified 04/03/24 10:06 Surgical History Hx of breast lump removal History of appendectomy Social History household members: children Smoking Status: Never smoker substance use type: does not use ROS ROS ED Constitutional Constitutional ED: Denies chills or fever(s) Eyes Eyes: Denies discharge from eye(s) ENT ENT ED: Denies discharge from eye(s), rhinorrhea or sore throat Cardiovascular Cardiovascular: Denies chest pain or palpitations Respiratory/Chest Respiratory/Chest: Denies cough or dyspnea Gastrointestinal Gastrointestinal: Denies abdominal pain, nausea or vomiting Musculoskeletal Musculoskeletal: Reports back pain and extremity pain Integumentary Denies Abrasions or rash Neurologic Neurologic: Denies headache(s) or weakness Psychiatric Psychiatric: Denies anxiety or depression Allergic/Immunologic Allergic/Immunologic ED: Denies lip swelling or urticaria EXAM Physical Exam Const Vital Signs: 04/03/24 10:06 Temperature 95.9 F L Temperature Source Temporal Pulse Rate 85 Respiratory Rate 18 Blood Pressure 137/99 H Blood Pressure Mean 111 Pulse Ox 100 Oxygen Delivery Method Room Air Positive well nourished and well developed General Appearance ED: well developed HEENT Reports moist mucous membranes Eyes EOMs intact bilaterally Chest Wall inspection of chest normal and palpation of chest normal Resp normal respiratory effort and clear to auscultation bilaterally Cardio regular rate and regular rhythm GI non-tender Palpation: soft Extremity Extremity Narrative: Mild tenderness all patient along the right third finger. Good range of motion. Good cap refill and sensation. No obvious deformity. Diffuse tenderness around the left great toe. Good cap refill and sensation distally. No tenderness over the ankle or knee. No laceration or abrasion noted. Neuro oriented x3 and no sensory deficits noted Motor Exam: strength 5/5 throughout Psych mental status grossly normal Skin no rashes or lesions noted MDM MDM MDM Narrative Medical decision making narrative: X-rays of the right hand and left foot obtained to evaluate potential fracture. Differential diagnosis includes sprain, strain, contusion. Radiography Diagnostic Testing: Clinical Impression(s) from Imaging Studies Foot X-Ray 04/03/24 10:15 IMPRESSION: Age-indeterminate nondisplaced fracture at the base of the proximal phalanx in the left first toe. Electronically Signed: Brandee Mojica MD at 10:36 EDT , Hand X-Ray 04/03/24 10:15 IMPRESSION: No acute fracture or dislocation identified in the right hand. Electronically Signed: Brandee Mojica MD at 10:37 EDT , Treatment and Re-Evaluation :: Right hand x-ray per my interpretation was no obvious fracture or dislocation. Radiology interpretation reviewed and agrees. Left foot x-ray per my interpretation does reveal small avulsion fracture off the proximal phalanx of the left great toe. Edges do appear rounded, however patient denies any prior injury to her foot and that is where she is tender from today's fall. Radiology interpretation is reviewed and do call this fracture age-indeterminate. Patient will be given a postop shoe. She will be referred to podiatry for follow-up. She will continue Tylenol or ibuprofen at home for pain. Return instructions given. Discharge Plan Triage Chief Complaint: Lower Extremity Injury ED Provider: Deb Beebe Dx/Rx/DC Orders Clinical Impression: Fall, Finger sprain, Fracture of toe Instructions: ED Finger Sprain, ED Fracture, Toe, Closed Prescriptions: No Action rizatriptan 5 MG tablet,disintegrating 5 mg PO X1 MDD 6 PRN (Reason: Headache) citalopram 20 mg tablet 40 mg PO DAILY buspirone 5 mg tablet 5 mg PO DAILY propranolol 10 mg tablet 120 mg PO DAILY PRN (Reason: MIGRAINES) bupropion HCl 150 mg tablet extended release 24 hr 150 mg PO DAILY omeprazole 20 mg capsule,delayed release(DR/EC) 40 mg PO BID [facility] Provider: [facility] Referrals: Kolton Burton DPM [Med Staff - Active Staff] - 1-2 Weeks [facility],[place] [Primary Care Provider] - Print Language: Georgian Disposition Disposition: Home, Self Care
[2024-04-03 11:23] VITALS: BP 115/60; PULSE 74; RESP 18; TEMP 36.8; O2SAT 97
== END 2024-04-03 11:24 | disposition home or self-care (01) ==
LOC: ED 11:15
PROVIDERS: Emergency Provider Emergency Medicine; Visit Provider Emergency Medicine
DX: S63.612A Unspecified sprain of right middle finger, initial encounter (principal); S92.402A Displaced unspecified fracture of left great toe, initial encounter for closed fracture; J45.909 Unspecified asthma, uncomplicated; F41.9 Anxiety disorder, unspecified; F32.A Depression, unspecified; Z79.899 Other long term (current) drug therapy; W19.XXXA Unspecified fall, initial encounter
CPT/HCPCS: 73130; 73630; 99284

== ENCOUNTER 2024-11-30 21:06 | Emergency (ER) | payer OTHER, SELFPAY ==
[2024-11-30 21:06] VITALS: BP 142/107; PULSE 104; RESP 30; TEMP 36.2; O2SAT 100
[2024-11-30 21:21] VITALS: BP 148/93; PULSE 91; RESP 23; O2SAT 100
[2024-11-30 21:24] VITALS: O2SAT 100
--- NOTE | 2024-11-30 21:24 | ED.VIS.DYS ---
HPI History of Present Illness Chief Complaint: Shortness of Breath PFSH PFS Medical History Fibromyalgia Wears glasses Post-menopausal Depression Anxiety Restless legs Back pain Injury of head and neck Syncope History of ulceration Gastric reflux Non-smoker Asthma Shortness of breath on exertion History of pain when walking Arthritis Migraine Home Medications ?Medication ?Instructions ?Recorded ?Last Taken ?Type rizatriptan 5 mg disintegrating 5 mg PO X1 PRN Headache 08/14/20 Unknown History tablet citalopram 20 mg tablet 40 mg PO DAILY 10/21/21 04/03/24 History buspirone 5 mg tablet 5 mg PO DAILY 08/05/22 04/03/24 History propranolol 10 mg tablet 120 mg PO DAILY PRN MIGRAINES 08/05/22 08/07/22 History bupropion HCl 150 mg 24 hr tablet, 150 mg PO DAILY 04/03/24 04/03/24 History extended release omeprazole 20 mg capsule,delayed 40 mg PO BID 04/03/24 04/03/24 History release Allergy/AdvReac Type Severity Reaction Status Date / Time sumatriptan (From Imitrex) Allergy Other Verified 11/30/24 21:06 citric acid AdvReac Rash Verified 11/30/24 21:06 metformin AdvReac Diarrhea Verified 11/30/24 21:06 Family History no significant family his Surgical History Hx of breast lump removal History of appendectomy Social History household members: children Smoking Status: Never smoker substance use type: does not use EXAM Physical Exam Const Vital Signs: 11/30/24 21:06 11/30/24 21:21 Temperature 97.2 F L Temperature Source Temporal Pulse Rate 104 H 91 Respiratory Rate 30 H 23 H Blood Pressure 142/107 H 148/93 H Blood Pressure Mean 118 111 Pulse Ox 100 100 Oxygen Delivery Method Room Air Discharge Plan Triage Chief Complaint: Shortness of Breath ED Provider: Jonathan Martinez Dx/Rx/DC Orders Prescriptions: No Action rizatriptan 5 MG tablet,disintegrating 5 mg PO X1 MDD 6 PRN (Reason: Headache) citalopram 20 mg tablet 40 mg PO DAILY buspirone 5 mg tablet 5 mg PO DAILY propranolol 10 mg tablet 120 mg PO DAILY PRN (Reason: MIGRAINES) bupropion HCl 150 mg tablet extended release 24 hr 150 mg PO DAILY omeprazole 20 mg capsule,delayed release(DR/EC) 40 mg PO BID [facility] [facility] [facility] [Primary [facility] Provider] - Print Language: Yoruba
--- NOTE | 2024-11-30 21:25 | EX.ED.VIS.UR ---
HPI HPI - URI History of Present Illness Chief Complaint: Shortness of Breath Informant: patient Onset/Context/Timing Onset: Today and Hours Current Severity: Mild Maximum Severity: Mild Associated Symptoms Associated Symptoms: Positive for Nasal Congestion, Shortness of Breath and Productive Cough (White sputum) Narrative Narrative: 59-year-old female history of anxiety and depression. States that she is been feeling well. Said she has had a sore throat today went to the urgent care said they did not do a strep test or any other testing but they told her she might have strep throat for the started on amoxicillin. Tonight she said she started having a coughing fit and was having trouble breathing so decided to come in. She denies any fever. She denies any vomiting or diarrhea. Prior similar symptoms: Yes Recent Illness/Hospitalization: No ROS ROS ED ROS Narrative Cough. Mild sore throat. Constitutional Constitutional ED: Denies chills or fever(s) Eyes Eyes: Denies blurry vision ENT ENT ED: Reports sore throat; Denies ear pain or rhinorrhea Cardiovascular Cardiovascular: Denies chest pain or palpitations Respiratory/Chest Respiratory/Chest: Reports cough and dyspnea; Denies dyspnea on exertion Gastrointestinal Gastrointestinal: Denies abdominal pain, constipation or diarrhea Genitourinary Genitourinary ED: Denies dysuria or hematuria Musculoskeletal Musculoskeletal: Denies arthralgias Integumentary Denies abscess or Abrasions Neurologic Neurologic: Denies headache(s) Psychiatric Psychiatric: Reports anxiety Endocrine Endocrinology: Denies cold intolerance Hematologic/Lymphatic Hematologic/Lymphatic: Denies easy bleeding Allergic/Immunologic Allergic/Immunologic ED: Denies mouth swelling, tongue swelling or urticaria PFSH PFS Medical History Fibromyalgia Wears glasses Post-menopausal Depression Anxiety Restless legs Back pain Injury of head and neck Syncope History of ulceration Gastric reflux Non-smoker Asthma Shortness of breath on exertion History of pain when walking Arthritis Migraine Home Medications ?Medication ?Instructions ?Recorded ?Last Taken ?Type rizatriptan 5 mg disintegrating 5 mg PO X1 PRN Headache 08/14/20 Unknown History tablet citalopram 20 mg tablet 40 mg PO DAILY 10/21/21 04/03/24 History buspirone 5 mg tablet 5 mg PO DAILY 08/05/22 04/03/24 History propranolol 10 mg tablet 120 mg PO DAILY PRN MIGRAINES 08/05/22 08/07/22 History bupropion HCl 150 mg 24 hr tablet, 150 mg PO DAILY 04/03/24 04/03/24 History extended release omeprazole 20 mg capsule,delayed 40 mg PO BID 04/03/24 04/03/24 History release Allergy/AdvReac Type Severity Reaction Status Date / Time sumatriptan (From Imitrex) Allergy Other Verified 11/30/24 21:06 citric acid AdvReac Rash Verified 11/30/24 21:06 metformin AdvReac Diarrhea Verified 11/30/24 21:06 Family History no significant family his Surgical History Hx of breast lump removal History of appendectomy Social History household members: children Smoking Status: Never smoker substance use type: does not use EXAM Physical Exam Narrative Exam Narrative: Well-appearing 59-year-old female. Vital signs are stable. She is afebrile. She does not look septic or toxic. She is in no distress. Her pulse ox 100% on room air. She is anxious. But appears to be calming down and relaxing. H EENT exam pupils round reactive light. Posterior pharynx normal. No erythema or exudate. No trouble swallowing or breathing. TMs normal bilaterally. Moist mucous membranes. Neck nontender no lymphadenopathy. Trachea midline. Lungs clear to auscultation bilaterally. Dry cough. Heart regular rhythm rate about 90 no murmur. Chest wall ribs nontender. Abdomen soft nontender. Moving all 4 extremities. Nontender no edema. Neurologically she is awake alert no focal motor deficits. Skin unremarkable. No rashes. Back nontender. Const Vital Signs: 11/30/24 21:06 11/30/24 21:21 11/30/24 21:24 Temperature 97.2 F L Temperature Source Temporal Pulse Rate 104 H 91 Respiratory Rate 30 H 23 H Respiratory Effort Short of Breath Respiratory Depth Normal Respiratory Pattern Tachypnea Blood Pressure 142/107 H 148/93 H Blood Pressure Mean 118 111 Pulse Ox 100 100 Oxygen Delivery Method Room Air Room Air Positive well nourished and well developed; Negative for cachectic or contractures General Appearance ED: well developed and NAD; Negative for cachectic, contractures, cyanotic, diaphoretic or pallor Nutritional Appearance: Negative for cachectic HEENT Reports moist mucous membranes normocephalic and atraumatic Throat: posterior oropharynx normal Eyes PERRL and EOMs intact bilaterally General Eye ED: Negative for pale conjunctiva, scleral icterus or other Neck no lymphadenopathy, supple, no meningeal signs and no JVD General: Negative for anterior neck swelling or lymphadenopathy Resp normal respiratory effort and clear to auscultation bilaterally Effort and Inspection: Negative for retractions Auscultation: Negative for rales, rhonchi, wheezes or diminished lung sounds Cardio S1 normal heart sound, S2 normal heart sound and no murmurs Rate: regular rate Rhythm: regular rhythm GI non-tender, non-distended and no masses Palpation: soft; Negative for tender or guarding Back/Spine no CVA tenderness and normal ROM General Back: Negative for CVA tenderness Cervical Spine: Negative for cervical spine tenderness Thoracic Spine / Upper Back: Negative for thoracic spinal tenderness Lumbar Spine / Lower Back: Negative for lumbar spinal tenderness Sacrum: Negative for tenderness Extremity normal to inspection and full ROM General Extremety ED: Negative for cyanosis, tenderness or other findings General Extremity: Negative for cyanosis or other findings Neuro oriented x3 and CN's II-XII intact bilaterally Sensorium / Orientation: alert, oriented to person, oriented to place and oriented to time; Negative for orientation impaired, lethargic or stuporous Motor Exam: strength 5/5 throughout; Negative for general weakness or strength abnormal Psych mental status grossly normal Psych Narrative: Patient is anxious but appears to be calming down. Attitude: No agitated Mood & Affect: anxious; Negative for depressed or tearful Skin General Skin Exam: Negative for pallor Lesions: no lesions Rashes: no rashes Trauma: Negative for abrasion MDM MDM MDM Narrative Medical decision making narrative: 59-year-old female URI symptoms with transient shortness of breath while coughing the night. Her exam is benign. Chest x-ray being obtained. We discussed COVID and flu testing and she was comfortable not getting there is done something would really change our treatment plan. The urgent care did put her on amoxicillin but clinically at all that she has strep throat. She has no erythema or exudate. No trouble swallowing. No lymphadenopathy. Repeat exam patient doing well at 10:06 PM. We discussed her chest x-ray. She is comfortable being discharged home. Viral URI. Patient states I think I had a panic attack when I start coughing. I also believe there is an anxiety component to this. She is doing well at this time is comfortable being discharged home. History & Record Review Discussion w/independent historian: Patient Radiography Chest X-Ray - ED: 2 View, Read by ED Physician, Heart, Lungs, Mediastinum, No Acute Disease and Chronic Changes Diagnostic Testing: Clinical Impression(s) from Imaging Studies Chest X-Ray 11/30/24 21:32 IMPRESSION: Normal x-ray examination of the chest. Electronically Signed: Silvano Lucio MD at 22:07 EST , Chest x-ray, 2 views, AP and lateral, turbid by myself shows no acute abnormality. Normal cardiac silhouette. Normal lung aguilar. No pneumonia. No effusions. I did go over the film with the patient. Discharge Plan Triage Chief Complaint: Shortness of Breath ED Provider: Jonathan Martinez Dx/Rx/DC Orders Clinical Impression: Viral URI Instructions: ED URI, Viral, No Abx (Adult) Prescriptions: No Action rizatriptan 5 MG tablet,disintegrating 5 mg PO X1 MDD 6 PRN (Reason: Headache) citalopram 20 mg tablet 40 mg PO DAILY buspirone 5 mg tablet 5 mg PO DAILY propranolol 10 mg tablet 120 mg PO DAILY PRN (Reason: MIGRAINES) bupropion HCl 150 mg tablet extended release 24 hr 150 mg PO DAILY omeprazole 20 mg capsule,delayed release(DR/EC) 40 mg PO BID [facility] [Primary Care Provider] - 3-5 Days if not improving Activity Restrictions/Additional Instructions: Plenty of fluids and rest. [facility] not [facility]. If you choose you can continue to take the antibiotic that they prescribed for you at the urgent care. However it does not look like you have strep throat. Print Language: Upper Sorbian Disposition Disposition: Home, Self Care
--- NOTE | 2024-11-30 21:32 | RAD_ITS ---
STUDY: X-RAY CHEST REASON FOR EXAM: Female, 59 years old. cough TECHNIQUE: Frontal and lateral views of the chest. COMPARISON: June 17, 2023 FINDINGS: The lungs are clear and expanded. There is no demonstrated pleural abnormality. Normal size heart. Normal mediastinum and marcie. Normal visualized pulmonary arteries. Normal visualized aortic arch and descending thoracic aorta. Normal visualized thoracic spine. Normal visualized ribs, clavicles, and shoulders. There is no demonstrated abnormality of the visualized soft tissue structures of the upper abdomen. RAD/Chest PA and Lateral IMPRESSION: Normal x-ray examination of the chest. Electronically Signed: Silvano Lucio MD at 22:07 [facility] ,
[2024-11-30 21:54] VITALS: PULSE 100; RESP 32
[2024-11-30 22:00] VITALS: PULSE 87; RESP 23; O2SAT 100
[2024-11-30 22:14] VITALS: BP 133/88; PULSE 87; RESP 24; TEMP 36.7; O2SAT 97
== END 2024-11-30 22:16 | disposition home or self-care (01) ==
PROVIDERS: Emergency Provider Emergency Medicine; Visit Provider Emergency Medicine
DX: J06.9 Acute upper respiratory infection, unspecified (principal); F41.9 Anxiety disorder, unspecified; Z79.899 Other long term (current) drug therapy
CPT/HCPCS: 71046; 99282